=== PATIENT | female | born 1950 | race Caucasian/White ===

== ENCOUNTER 2016-08-12 12:34 | Emergency (ER) | payer MEDICARE, BC ==
[2016-08-12 12:49] VITALS: BP 148/103
[2016-08-12] MEDS ORDERED: Ondansetron 4 MG/2 ML SDV IVPUSH PRN (13:07)
[2016-08-12] MEDS ORDERED: Lactated Ringers 1,000 ML IV SCH (13:15)
[2016-08-12 13:17] LABS: CHLORIDE,CL 100 mEq/L (98-106); SODIUM,NA 134 mEq/L (136-145)
--- NOTE | 2016-08-12 13:17 | EDM.PDOC ---
ED HPI GENERAL MEDICAL PROBLEM - General Chief Complaint: General Stated Complaint: weakness Time Seen by Provider: 08/12/16 12:55 Source of Information: Reports: Patient, Family History Limitations: Reports: No limitations - History of Present Illness INITIAL COMMENTS - FREE TEXT/NARRATIVE: Patient presents to ER with complaints of weakness, nausea and vomiting. She has underwent 5 rounds of chemo for a colon cancer that was found in February. She states this is her second occurrence of colon cancer and has also had labial cancer. With her first bout of cancer, 4 1/2 years ago, she had a large portion of her colon removed. She hasn't underwent any surgery this time as she are doing chemo. She states that in the beginning of May she went through weekly chemo and now it is every other week as she hasn't been tolerating it as well. She used to be able to respond quite quickly with recovery in a day or two but she now feels it is a steady decline. Two days ago , she started having more issues with weakness, nausea and vomiting than prior sessions. She denies fever. She does not have much of an appetite and relates that drinking Boost can only do so much. Has lost 15# since May. She did call her oncologist's office today and was advised she should have labs and possibly fluids as she may be dehydrated. Onset: gradual Duration: Week(s): Location: Reports: generalized Severity: moderate Improves with: Reports: None Worsens with: Reports: Medication (chemo) Associated Symptoms: Reports: loss of appetite, nausea/vomiting, weakness. 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: Other medication(s) (Zofran and phenergan) - Related Data Allergies Allergy/AdvReac Type Severity Reaction Status Date / Time Sulfa (Sulfonamide Allergy Rash Verified 08/12/16 12:55 Antibiotics) Home Meds: Home Meds Sertraline [Zoloft] 50 mg PO DAILY 04/06/15 [History] Amylase/Lipase/Protease [Walt RAYO 24,000 Unit] 1 - 2 cap PO QID 06/13/16 [ History] Calcium Citrate 200 mg PO DAILY 06/13/16 [History] Cholecalciferol (Vitamin D3) [Vitamin D3] 5,000 unit PO DAILY 06/13/16 [History] Cyclobenzaprine [Flexeril] 10 mg PO BEDTIME PRN 06/13/16 [History] Ibuprofen 200 mg PO Q6H PRN 06/13/16 [History] Magnesium 250 mg PO DAILY 06/13/16 [History] oxyCODONE 5 - 10 mg PO Q4H PRN 06/13/16 [History] Megestrol Acetate 2 tsp PO DAILY 08/12/16 [History] Ondansetron HCl [Ondansetron] 8 mg PO Q6H PRN 08/12/16 [History] Promethazine [Phenergan] 0.2 ml TOP ASDIRECTED PRN 08/12/16 [History] Past Medical History HEENT History: Reports: Impaired vision Other HEENT History: wears glasses Gastrointestinal History: Reports: Other (see below) Other Gastrointestinal History: COLON CA. 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) Other OB/BYN History: vulvectomy 11/09/15 Psychiatric History: Reports: Depression Oncologic (Cancer) History: Reports: Colon, Other (see below) Other Oncologic History: CA OF VULVA - Past Surgical History GI Surgical History: Reports: Appendectomy, Colonoscopy Social & Family History - Tobacco Use Smoking Status *Q: Current Every Day Smoker Years of Tobacco use: 40 Packs/Tins Daily: 2 Used Tobacco, but Quit: No - Recreational Drug Use Recreational Drug Use: No ED ROS GENERAL - Review of Systems Review Of Systems: See Below Constitutional: Reports: chills, weakness, fatigue, decreased appetite, weight loss. Denies: fever HEENT: Denies: Ear discharge, Ear pain, Rhinitis, Sinus problem, Throat pain Respiratory: Reports: Cough. Denies: Shortness of Breath, Wheezing Cardiovascular: Denies: Chest pain, Edema, Lightheadedness Endocrine: Reports: fatigue GI/Abdominal: Reports: Diarrhea, Nausea, Vomiting. Denies: Abdominal pain : Reports: no symptoms Musculoskeletal: Reports: no symptoms Skin: Reports: pallor Neurological: Reports: Weakness ED EXAM, GENERAL - Physical Exam Exam: See Below Exam Limited By: No limitations General Appearance: alert, WD/WN, no apparent distress Ears: normal external exam, normal TMs Nose: normal inspection, no blood Throat/Mouth: Normal inspection, Normal oropharynx Head: normocephalic Neck: normal inspection, supple, non-tender Respiratory/Chest: no respiratory distress, rhonchi Cardiovascular: regular rate, rhythm, no edema GI/Abdominal: normal bowel sounds, soft, non tender Neurological: alert, oriented Psychiatric: normal affect, normal mood Skin Exam: Warm, Dry Course - Vital Signs Last Recorded V/S: Last Vital Signs Temp 97.9 F 08/12/16 12:40 Pulse 121 H 08/12/16 12:40 Resp 22 H 08/12/16 12:40 BP 148/103 H 08/12/16 12:40 Pulse Ox 100 08/12/16 12:40 - Orders/Labs/Meds Orders: Active Orders 24 hr Category Date Time Status CULTURE URINE [RM] Stat Lab 08/12/16 14:00 Received Fluconazole [Diflucan] Med 08/12/16 14:15 Active 150 mg PO DAILY Ondansetron [Zofran] Med 08/12/16 13:07 Active 4 mg IVPUSH Q6H PRN Sodium Chloride 0.9% [Normal Saline] 1,000 ml Med 08/12/16 13:30 Active IV ASDIRECTED cefTRIAXone [Rocephin] Med 08/12/16 14:15 Active 1 gm IVPUSH Q24H Medication Orders Ceftriaxone Sodium (Rocephin) 1 gm IVPUSH Q24H [facility] Last Admin: 08/12/16 14:24 Dose: 1 gm Fluconazole (Diflucan) 150 mg PO DAILY [facility] Last Admin: 08/12/16 14:53 Dose: 150 mg Sodium Chloride (Normal Saline) 1,000 mls @ 150 mls/hr IV ASDIRECTED [facility] Last Admin: 08/12/16 13:36 Dose: 150 mls/hr Ondansetron HCl (Zofran) 4 mg IVPUSH Q6H PRN PRN Reason: Nausea Last Admin: 08/12/16 13:36 Dose: 4 mg Labs: Laboratory Tests 08/12/16 08/12/16 08/12/16 Range/Units 13:00 13:00 13:20 WBC 7.1 (5.0-10.0) 10^3/uL RBC 4.07 (4.00-5.50) 10^6/uL Hgb 12.5 (12.0-16.0) g/dL Hct 35.4 L (37.0-47.0) % MCV 87.0 (82.0-94.0) fL MCH 30.7 (27.0-32.0) pg MCHC 35.3 (33.0-38.0) g/dL RDW Coeff of Kortney 16.3 H (11.0-15.0) % Plt Count 325 (150-400) 10^3/uL Neut % (Auto) 61.6 (35-85) % Lymph % (Auto) 33.6 (10-55) % Irwin % (Auto) 4.4 (0-16) % Eos % (Auto) 0.1 (0-5) % Baso % (Auto) 0.3 (0-3) % Neut # 4.39 (1.80-7.00) 10^3/uL Lymph # 2.39 (1.00-4.80) 10^3/uL Irwin # 0.31 (0.00-0.80) 10^3/uL Eos # 0.01 (0.00-0.45) 10^3/uL Baso # 0.02 10^3/uL Sodium 134 L (136-145) mEq/L Potassium 4.3 (3.5-5.0) mEq/L Chloride 100 (98-106) mEq/L Carbon Dioxide 20 L (21-32) mmol/L BUN 14 (7-18) mg/dL Creatinine 0.8 (0.6-1.0) mg/dL Est Cr Clr Drug Dosing 58.93 mL/min Estimated GFR (MDRD) > 60 (>=60) mL/min Glucose 130 H D (75-99) mg/dL Calcium 9.2 (8.4-10.1) mg/dL Total Bilirubin 0.3 (0.0-1.0) mg/dL AST 12 L (15-37) U/L ALT 19 (12-78) U/L Alkaline Phosphatase 108 (46-116) U/L C-Reactive Protein 1.0 H (0.2-0.8) mg/dL Total Protein 6.9 (6.4-8.2) g/dL Albumin 2.6 L (3.4-5.0) g/dL Urine Color Yellow (YELLOW) Urine Appearance Clear (CLEAR) Urine pH 5.5 (4.5-8.0) Ur Specific [place] 1.022 H (1.003-1.020) Urine Protein 30 H (NEGATIVE) mg/dL Urine Glucose (UA) Negative (NEGATIVE) mg/dL Urine Ketones Negative (NEGATIVE) mg/dL Urine Occult Blood Moderate H (NEGATIVE) Urine Nitrite Negative (NEGATIVE) Urine Bilirubin Negative (NEGATIVE) Urine Urobilinogen 0.2 (0.2-1.0) EU/dL Ur Leukocyte Esterase Negative (NEGATIVE) Urine RBC 5-10 H (0-5) /HPF Urine WBC Not seen (0-5) /HPF Ur Epithelial Cells Many H (NOT SEEN) /HPF Urine Bacteria Few H (NOT SEEN) /HPF Urine Yeast Few H (NOT SEEN) /HPF Meds: Medications Generic Name Dose Route Start Last Admin Trade Name Freq PRN Reason Stop Dose Admin Ceftriaxone Sodium 1 gm 08/12/16 14:15 08/12/16 14:24 Rocephin IVPUSH 1 gm Q24H MARIBEL Administration Fluconazole 150 mg 08/12/16 14:15 08/12/16 14:53 Diflucan PO 150 mg DAILY MARIBEL Administration Sodium Chloride 1,000 mls @ 150 mls/hr 08/12/16 13:30 08/12/16 13:36 Normal Saline IV 150 mls/hr ASDIRECTED MARIBEL Administration Ondansetron HCl 4 mg 08/12/16 13:07 08/12/16 13:36 Zofran IVPUSH 4 mg Q6H PRN Administration Nausea Discontinued Medications Generic Name Dose Route Start Last Admin Trade Name Freq PRN Reason Stop Dose Admin Lactated Ringer's 1,000 mls @ 150 mls/hr 08/12/16 13:15 Ringers, Lactated IV ASDIRECTED MARIBEL - Re-Assessments/Exams Free Text/Narrative Re-Assessment/Exam: 08/12/16 16:16 Reviewed lab results. Does have evidence of bacteria in her urine and yeast as well so will treat accordingly. Given Rocephin and Diflucan here. Will continue Ceftin and Diflucan on discharge. Patient informed and verbalizes understanding. Did advise her to notify Dr. Pritchard's office of todays visit and results. Departure - Departure Time of Disposition: 16:19 Disposition: Home, Self-Care 01 Condition: fair Clinical Impression: Dehydration, UTI, Urinary tract infectious disease Forms: ED Department Discharge Additional Instructions: 1. Push fluids 2. Ceftin 250 mg twice a day for 10 days 3. Repeat Diflucan on 08-15-2016 4. Rest 5. Follow up with oncologist as scheduled. Notify his office of visit today - My Orders Last 24 Hours: My Active Orders 08/12/16 13:07 Ondansetron [Zofran] 4 mg IVPUSH Q6H PRN 08/12/16 13:30 Sodium Chloride 0.9% [Normal Saline] 1,000 ml IV ASDIRECTED 08/12/16 14:00 CULTURE URINE [RM] Stat 08/12/16 14:15 Fluconazole [Diflucan] 150 mg PO DAILY cefTRIAXone [Rocephin] 1 gm IVPUSH Q24H - Assessment/Plan Last 24 Hours: My Active Orders 08/12/16 13:07 Ondansetron [Zofran] 4 mg IVPUSH Q6H PRN 08/12/16 13:30 Sodium Chloride 0.9% [Normal Saline] 1,000 ml IV ASDIRECTED 08/12/16 14:00 CULTURE URINE [RM] Stat 08/12/16 14:15 Fluconazole [Diflucan] 150 mg PO DAILY cefTRIAXone [Rocephin] 1 gm IVPUSH Q24H
[2016-08-12] MEDS ORDERED: Sodium Chloride 0.9% 1,000 ML IV SCH (13:30)
[2016-08-12] MEDS ORDERED: Fluconazole 100 MG Tab PO SCH (14:15)
[2016-08-12] MEDS ORDERED: cefTRIAXone 1 GM Vial IVPUSH SCH (14:15)
== END 2016-08-12 17:50 | disposition home or self-care (01) ==
LOC: CC.ED 12:34
DX: E86.0 Dehydration (principal); N39.0 Urinary tract infection, site not specified; F32.9 Major depressive disorder, single episode, unspecified; F17.210 Nicotine dependence, cigarettes, uncomplicated; Z90.49 Acquired absence of other specified parts of digestive tract; Z88.2 Allergy status to sulfonamides; Z79.899 Other long term (current) drug therapy
CPT/HCPCS: 36415; 80053; 81001; 85025; 86140; 87086; 96361; 96374; 96375; 99283; A9270; J0696; J1642; J2405; J7030

== ENCOUNTER 2019-03-16 06:38 | Emergency (ER) | payer MEDICARE, BC ==
[2019-03-16] MEDS: fentaNYL 100 MCG/2 ML SDV ONE (06:54)
[2019-03-16] MEDS: fentaNYL 100 MCG/2 ML SDV IM ONE (06:54)
[2019-03-16 07:24] VITALS: BP 177/92; PULSE 95
[2019-03-16] MEDS: Acetaminophen/oxyCODONE 325-5 MG Tab PO ONE (07:33)
--- NOTE | 2019-03-16 07:52 | EDM.PDOC ---
ED HPI GENERAL MEDICAL PROBLEM - General Chief Complaint: General Stated Complaint: BACK PAIN Time Seen by Provider: 03/16/19 07:10 Source of Information: Reports: Patient History Limitations: Reports: No Limitations - History of Present Illness INITIAL COMMENTS - FREE TEXT/NARRATIVE: Patient presents with complaints of severe low back pain. States became more severe last night. Denies any injury or straining. Has had intermittent back pain over the years, often is treated by the chiropractor. Has not had issues now for many months. 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 Has palliative chemo every 3 months. Due again at the end of February. Denies having any bone pain in the past from this. She typically has not had any pain, only takes tylenol at times. Does feel nauseated. No vomiting. Denies any abdominal pain. Does admit that she may be somewhat constipated but has been before and never had pain like this. 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: Acetaminophen Lower Back Pain Score (Numeric/FACES): 9 - Related Data Allergies Allergy/AdvReac Type Severity Reaction Status Date / Time Sulfa (Sulfonamide Allergy Rash Verified 03/16/19 06:40 Antibiotics) Home Meds: Home Meds Calcium Citrate 600 mg PO DAILY 06/13/16 [History] Cholecalciferol (Vitamin D3) [Vitamin D3] 5,000 unit PO DAILY 06/13/16 [History] Magnesium 500 mg PO DAILY 06/13/16 [History] Aspirin [Children's Aspirin] 81 mg PO DAILY 11/28/17 [History] Omeprazole Magnesium [Prilosec Otc] 20 mg PO DAILY 11/28/17 [History] Venlafaxine HCl [Venlafaxine ER] 150 mg PO BEDTIME 12/26/17 [History] Amylase/Lipase/Protease [Walt DR 24,000 Unit] 2 cap PO QID 09/10/18 [History] Loperamide [Imodium] 2 mg PO DAILY PRN 02/05/19 [History] Past Medical History HEENT History: Reports: Impaired Vision Other HEENT History: wears glasses Gastrointestinal History: Reports: Other (See Below) Other Gastrointestinal History: COLON CA. 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) Other SOLUTION DIRECTOR History: vulvectomy 11/09/15 Psychiatric History: Reports: Depression Oncologic (Cancer) History: Reports: Colon, Other (See Below) Other Oncologic History: CA OF VULVA - Past Surgical History GI Surgical History: Reports: Appendectomy, Colonoscopy Social & Family History - Family History Family Medical History: Noncontributory - Tobacco Use Smoking Status *Q: Current Every Day Smoker Years of Tobacco use: 50 Packs/Tins Daily: 1 Used Tobacco, but Quit: No - Caffeine Use Caffeine Use: Reports: Coffee - Recreational Drug Use Recreational Drug Type: Reports: Marijuana/Hashish ED ROS GENERAL - Review of Systems Review Of Systems: See Below Constitutional: Reports: Malaise, Weakness. Denies: Fever, Chills HEENT: Denies: Ear Pain, Sinus Problem, Throat Pain, Vertigo Respiratory: Reports: Shortness of Breath. Denies: Cough Cardiovascular: Denies: Chest Pain, Edema, Lightheadedness Endocrine: Reports: Fatigue GI/Abdominal: Reports: Abdominal Pain, Constipation, Nausea. Denies: Vomiting : Reports: No Symptoms Musculoskeletal: Reports: Back Pain ED EXAM, GENERAL - Physical Exam Exam: See Below Exam Limited By: No Limitations General Appearance: Alert, WD/WN, Moderate Distress Ears: Normal External Exam, Normal TMs Nose: Normal Inspection, Normal Mucosa, No Blood Throat/Mouth: Normal Inspection, Normal Oropharynx Head: Normocephalic Neck: Normal Inspection, Supple, Non-Tender Respiratory/Chest: No Respiratory Distress, Lungs Clear, Normal Breath Sounds Cardiovascular: Regular Rate, Rhythm GI/Abdominal: Normal Bowel Sounds, Soft, Non-Tender Back Exam: Decreased Range of Motion, Paraspinal Tenderness, Vertebral Tenderness Extremities: Normal Inspection, No Pedal Edema Neurological: Alert, Oriented Skin Exam: Warm, Dry Course - Vital Signs Last Recorded V/S: Last Vital Signs Temp 98.3 F 03/16/19 07:23 Pulse 95 03/16/19 07:23 Resp 18 03/16/19 07:23 BP 177/92 H 03/16/19 07:23 Pulse Ox 100 03/16/19 07:23 - Orders/Labs/Meds Orders: Active Orders 24 hr Category Date Time Status Consult to Physical Therapy [PT Evaluation and Cons 03/16/19 07:57 Active Treatment] [CONS] Routine Lumbar Spine 2 or 3V [CR] Stat Exams 03/16/19 06:50 Taken Meds: Medications Discontinued Medications Generic Name Dose Route Start Last Admin Trade Name Gordo PRN Reason Stop Dose Admin Fentanyl Confirm 03/16/19 06:32 03/16/19 06:54 Sublimaze Administered 03/16/19 06:33 Not Given Dose 100 mcg .ROUTE .STK-MED ONE Fentanyl 50 mcg 03/16/19 06:49 03/16/19 06:54 Sublimaze IM 03/16/19 06:50 50 mcg ONETIME ONE Administration Oxycodone/Acetaminophen 1 tab 03/16/19 07:26 03/16/19 07:33 Percocet 325-5 Mg PO 03/16/19 07:27 1 tab ONETIME ONE Administration - Re-Assessments/Exams Free Text/Narrative Re-Assessment/Exam: 03/16/19 08:00 Patient did get relief from Fentanyl that allowed her to be more mobile but did not "last very long". Given percocet now, will have PT see patient this am. Xrays stable, no obvious abnormality. Patient admits to relief with the Percocet. Unable to get patient in to physical therapy this am and she would like to go home at this time. Will see PT tomorrow. Departure - Departure Time of Disposition: 09:17 Disposition: Home, Self-Care 01 Condition: Fair Clinical Impression: Back pain - Discharge Information *PRESCRIPTION DRUG MONITORING PROGRAM REVIEWED*: No *COPY OF PRESCRIPTION DRUG MONITORING REPORT IN PATIENT JOSE: No Referrals: Jose Ramirez MD [Primary Care Provider] - Forms: ED Department Discharge Additional Instructions: 1. Rest 2. Percocet 5/325 1-2 tabs every 6 hours as needed for pain 3. Heat to low back for comfort 4. See physical therapy as able 5. Follow up with primary care provider if needed - My Orders Last 24 Hours: My Active Orders 03/16/19 06:50 Lumbar Spine 2 or 3V [CR] Stat 03/16/19 07:57 Consult to Physical Therapy [PT Evaluation and Treatment] [CONS] Routine - Assessment/Plan Last 24 Hours: My Active Orders 03/16/19 06:50 Lumbar Spine 2 or 3V [CR] Stat 03/16/19 07:57 Consult to Physical Therapy [PT Evaluation and Treatment] [CONS] Routine
== END 2019-03-16 09:39 | disposition home or self-care (01) ==
LOC: CC.ED 06:38
DX: M54.5 Low back pain (principal); F17.210 Nicotine dependence, cigarettes, uncomplicated; F32.9 Major depressive disorder, single episode, unspecified; Z79.82 Long term (current) use of aspirin; Z79.899 Other long term (current) drug therapy; Z88.2 Allergy status to sulfonamides
CPT/HCPCS: 72100; 96372; 99283-25; A9270-GY; J3010

== ENCOUNTER 2020-08-08 09:22 | Observation (INO) | payer MEDICARE, BC ==
[2020-08-08] MEDS ORDERED: Acetaminophen 325 MG Tab PO PRN (09:26)
[2020-08-08] MEDS ORDERED: Temazepam 15 MG Cap PO PRN (09:26)
[2020-08-08] MEDS ORDERED: Ondansetron 4 MG Tab.DIS PO PRN (09:26)
[2020-08-08] MEDS ORDERED: fentaNYL 50 MCG/ML SDV IVPUSH PRN (09:26)
[2020-08-08] MEDS ORDERED: Lactated Ringers 1,000 ML IV SCH (09:30)
[2020-08-08 10:07] LABS: CHLORIDE,CL 103 mEq/L (98-106); SODIUM,NA 141 mEq/L (136-145)
[2020-08-08] MEDS: Ondansetron 4 MG/2 ML SDV IV PRN ×2 (10:13→20:04)
[2020-08-08] MEDS ORDERED: MEGESTROL PO PRN (11:12)
[2020-08-08] MEDS ORDERED: Acetaminophen 500 MG Tab PO PRN (11:12)
[2020-08-08] MEDS: Pantoprazole 40 MG Vial IVPUSH SCH (12:00)
[2020-08-08] MEDS ORDERED: Polyethylene Glycol 3350 Powder 17 GM Packet PO PRN (13:17)
[2020-08-08] MEDS: PROTEASE PO SCH ×2 (13:20→17:32)
[2020-08-08] MEDS: AMYLASE PO SCH ×2 (13:20→17:32)
[2020-08-08] MEDS: LIPASE PO SCH ×2 (13:20→17:32)
[2020-08-08] MEDS: Gabapentin 100 MG Cap **PTOM PO SCH ×2 (13:26→21:28)
[2020-08-08] MEDS: MINOCYCLINE 100 MG PO SCH (17:31)
[2020-08-08] MEDS: NS + KCl 20mEq/L 1,000 ML IV SCH (17:33)
[2020-08-08] MEDS ORDERED: VENLAFAXINE 75 MG PO SCH (20:00)
[2020-08-08] MEDS ORDERED: VENLAFAXINE HCL 150 MG PO SCH (20:00)
[2020-08-09] MEDS: NS + KCl 20mEq/L 1,000 ML IV SCH ×2 (01:06→10:01)
[2020-08-09] MEDS: MINOCYCLINE 100 MG PO SCH (07:54)
[2020-08-09] MEDS: PROTEASE PO SCH ×2 (07:55→11:50)
[2020-08-09] MEDS: LIPASE PO SCH ×2 (07:55→11:50)
[2020-08-09] MEDS: AMYLASE PO SCH ×2 (07:55→11:50)
[2020-08-09] MEDS: Gabapentin 100 MG Cap **PTOM PO SCH (07:56)
[2020-08-09] MEDS: Ondansetron 4 MG/2 ML SDV IV PRN (07:59)
[2020-08-09] MEDS ORDERED: Aspirin 81 MG Tab.Chew PO SCH (08:00)
[2020-08-09] MEDS ORDERED: Dexamethasone 4 MG Tab PO SCH (08:00)
[2020-08-09] MEDS ORDERED: Cholecalciferol (Vitamin D3) 25 MCG Tab PO SCH (08:00)
[2020-08-09] MEDS: Pantoprazole 40 MG Vial IVPUSH SCH (11:43)
[2020-08-09 11:51] VITALS: BP 167/85
[2020-08-09] MEDS ORDERED: Lisinopril 10 MG Tab PO SCH (12:00)
[2020-08-09 12:10] VITALS: PULSE 78
--- NOTE | 2020-08-09 13:20 | PCM.DCSUM1 ---
Discharge Summary - Hospital Course HPI Initial Comments: Ping is a 69 year old female who was admitted observation status to the hospital yesterday for dehydration, N/V and hypokalemia. She has stage IV colon cancer. Was scheduled to do round of chemotherapy yesterday but was feeling very poorly. Lab work stable except potassium down to 3.2. She was admitted, started on IVF with KCL and IV zofran. She reports strength has improved since yesterday. She does report improvement in her nausea. Has not had emesis. She was able to eat breakfast this morning. BP elevated throughout stay. Patient was started on lisinopril. She is advised to follow up with PCP or oncologist in 1 week and recheck potassium. She is advised to use her previously prescribed Zofran and promethazine as needed for nausea/vomiting. Did place outpatient order for IVF and Zofran should the patient need over the weekend. She is discharged home in satisfactory condition. - Discharge Data Discharge Date: 08/09/20 Discharge Disposition: Home, Self-Care 01 Condition: Good - Referral to Home Health Primary Care Physician: GEORGIE Delacruz - Discharge Diagnosis/Problem(s) (1) Dehydration SNOMED Code(s): 65131711 ICD Code: E86.0 - DEHYDRATION Status: Acute Current Visit: No (2) Nausea & vomiting SNOMED Code(s): 84169987 ICD Code: R11.2 - NAUSEA WITH VOMITING, UNSPECIFIED Status: Acute Current Visit: Yes Qualifiers: Vomiting type: unspecified Vomiting Intractability: non-intractable Qualified Code(s): R11.2 - Nausea with vomiting, unspecified (3) Hypokalemia SNOMED Code(s): 70350317 ICD Code: E87.6 - HYPOKALEMIA Status: Acute Current Visit: Yes - Patient Instructions Diet: Usual Diet as Tolerated Activity: As Tolerated Notify Provider of: Fever, Increased Pain, Nausea and/or Vomiting - Discharge Plan *PRESCRIPTION DRUG MONITORING PROGRAM REVIEWED*: Not Applicable *COPY OF PRESCRIPTION DRUG MONITORING REPORT IN PATIENT JOSE: Not Applicable Prescriptions/Med Rec: lisinopriL [Prinivil] 10 mg PO DAILY #30 tablet Home Medications: Home Meds Cholecalciferol (Vitamin D3) [Vitamin D3] 5,000 unit PO DAILY 06/13/16 [History] Aspirin [Children's Aspirin] 81 mg PO DAILY 11/28/17 [History] Omeprazole Magnesium [Prilosec Otc] 20 mg PO DAILY PRN 11/28/17 [History] Oxybutynin Chloride [Oxybutynin Chloride ER] 10 mg PO DAILY 02/25/20 [History] Acetaminophen [Tylenol Extra Strength] 1,000 mg PO QID PRN 08/08/20 [History] Amylase/Lipase/Protease [Walt RAYO 24,000 Unit] 1 - 2 cap PO TID 08/08/20 [History] Calcium Carbonate/Vitamin D3 [Calcium 500-Vit D3 600 Caplet] 1 tab PO DAILY 08/08/20 [History] Cannabidiol (Cbd) Extract [CBD Oil] 8 drop SL DAILY 08/08/20 [History] Gabapentin [Neurontin] 100 mg PO TID 08/08/20 [History] Magnesium Oxide [Mag-Oxide] 800 mg PO DAILY 08/08/20 [History] Megestrol [Megace 40 MG/ML Susp] 10 ml PO DAILY PRN 08/08/20 [History] Melatonin 3 mg PO BEDTIME 08/08/20 [History] Minocycline [Minocin] 100 mg PO BIDAC 08/08/20 [History] Multivitamin/Iron/Folic Acid [Centrum Adults Tablet] 1 tab PO DAILY 08/08/20 [History] Ondansetron [Zofran Odt] 8 mg PO Q6H PRN 08/08/20 [History] Policos/Inositol Niac/Garlic [Msmowhqyuqg-Ebelvt-Xbpbtr] 1 tab PO DAILY 08/08/20 [History] Promethazine [Phenergan] 25 mg TOP ASDIRECTED 08/08/20 [History] Venlafaxine HCl [Venlafaxine ER] 150 mg PO DAILY 08/08/20 [History] Venlafaxine [Effexor XR] 75 mg PO DAILY 08/08/20 [History] dexAMETHasone [Dexamethasone] 2 tab PO DAILY 08/08/20 [History] polyethylene glycoL 3350 [MiraLAX] 17 gm PO DAILY 08/08/20 [History] lisinopriL [Prinivil] 10 mg PO DAILY #30 tablet 08/09/20 [Rx] Patient Handouts: Nausea and Vomiting, Adult, [id number], Dehydration, Adult, [id number] - Discharge Summary/Plan Comment DC Time >30 min.: No - General Info Date of Service: 08/09/20 Admission Dx/Problem (Free Text: Dehydration Nausea and vomiting Hypokalemia Subjective Update: Patient reports strength has improved. She is less sleeping and has been up ambulating. She did tolerate small amount of breakfast. She denies any vomiting or diarrhea. No other complaints. Functional Status: Reports: Pain Controlled, Tolerating Diet, Ambulating, Urinating. Denies: New Symptoms - Review of Systems General: Reports: No Symptoms. Denies: Fever, Weakness, Malaise, Chills HEENT: Reports: No Symptoms Pulmonary: Reports: No Symptoms Cardiovascular: Reports: No Symptoms Gastrointestinal: Reports: Abdominal Pain (mild abdominal tenderness), Decreased Appetite, Nausea. Denies: Diarrhea, Vomiting Genitourinary: Reports: No Symptoms Musculoskeletal: Reports: No Symptoms Skin: Reports: No Symptoms Neurological: Reports: No Symptoms Psychiatric: Reports: No Symptoms - Patient Data Vitals - Most Recent: Last Vital Signs Temp 97.2 F 08/09/20 12:00 Pulse 78 08/09/20 12:00 Resp 18 08/09/20 12:00 BP 167/85 H 08/09/20 12:00 Pulse Ox 96 08/09/20 12:00 Weight - Most Recent: 116 lb 3.2 oz I&O - Last 24 hours: Intake & Output 08/08/20 08/09/20 08/09/20 22:59 06:59 14:59 Intake Total 944 1000 Balance 944 1000 Lab Results - Last 24 hrs: Laboratory Results - last 24 hr 08/09/20 Range/Units 09:15 Potassium 3.8 (3.5-5.0) mEq/L Med Orders - Current: Current Medications Acetaminophen (Acetaminophen 325 Mg Tab) 650 mg PO Q4H PRN PRN Reason: Pain (Mild 1-3)/fever Last Admin: 08/09/20 03:36 Dose: 650 mg Documented by: Aspirin (Aspirin 81 Mg Tab.Chew) 81 mg PO DAILY [facility] Last Admin: 08/09/20 07:56 Dose: Not Given Documented by: Cholecalciferol (Cholecalciferol (Vitamin D3) 25 Mcg Tab) 125 mcg PO DAILY [facility] Last Admin: 08/09/20 07:56 Dose: Not Given Documented by: Fentanyl (Fentanyl 50 Mcg/Ml Sdv) 25 mcg IVPUSH Q2H PRN PRN Reason: Pain (moderate 4-6) Last Admin: 08/08/20 10:12 Dose: 25 mcg Documented by: Gabapentin (Gabapentin 100 Mg Cap Ptom) 100 mg PO TID [facility] Last Admin: 08/09/20 07:56 Dose: Not Given Documented by: Potassium Chloride/Sodium Chloride (Normal Saline With 20 Meq Kcl) 1,000 mls @ 125 mls/hr IV ASDIRECTED [facility] Last Admin: 08/09/20 10:01 Dose: 125 mls/hr Documented by: Lisinopril (Lisinopril 10 Mg Tab) 10 mg PO DAILY [facility] Last Admin: 08/09/20 11:44 Dose: 10 mg Documented by: Non-Formulary Medication (Megestrol [Megace 40 Mg/Ml Susp]) 10 ml PO DAILY PRN PRN Reason: Other Minocycline [Minocin ] 100 Mg Cap Ptom* * 0 mg PO BIDAC [facility] Last Admin: 08/09/20 07:54 Dose: 1 mg Documented by: Venlafaxine Hcl 150 (Mg Cap.Er. Ptom) 0 mg PO BEDTIME [facility] Last Admin: 08/08/20 20:09 Dose: 150 mg Documented by: Amylase/Lipase/Protease 1 Cap ( Creon) Ptom 1 - 2 cap PO TIDMEALS [facility] Last Admin: 08/09/20 11:50 Dose: 2 cap Documented by: Ondansetron HCl (Ondansetron 4 Mg Tab.Dis) 4 mg PO Q4H PRN PRN Reason: nausea, able to take PO Ondansetron HCl (Ondansetron 4 Mg/2 Ml Sdv) 4 mg IV Q4H PRN PRN Reason: Nausea/Vomiting Last Admin: 08/09/20 07:59 Dose: 4 mg Documented by: Pantoprazole Sodium (Pantoprazole 40 Mg Vial) 40 mg IVPUSH Q24H [facility] Last Admin: 08/09/20 11:43 Dose: 40 mg Documented by: Polyethylene Glycol (Polyethylene Glycol 3350 Powder 17 Gm Packet) 17 gm PO DAILY PRN PRN Reason: Constipation Last Admin: 08/09/20 08:03 Dose: 17 gm Documented by: Temazepam (Temazepam 15 Mg Cap) 15 mg PO BEDTIME PRN PRN Reason: Sleep Venlafaxine HCl (Venlafaxine 75 Mg Cap.Er Ptom) 75 mg PO BEDTIME [facility] Last Admin: 08/08/20 19:52 Dose: 75 mg Documented by: Discontinued Medications Acetaminophen (Acetaminophen 500 Mg Tab) 1,000 mg PO QID PRN PRN Reason: Pain Dexamethasone (Dexamethasone 4 Mg Tab) 8 mg PO DAILY [facility] Lactated Ringer's (Ringers, Lactated) 1,000 mls @ 125 mls/hr IV ASDIRECTED [facility] Last Admin: 08/08/20 10:12 Dose: 125 mls/hr Documented by: Amylase/Lipase/Protease 1 Cap ( Creon) Ptom 1 - 2 cap PO TID [facility] Last Admin: 08/08/20 17:32 Dose: 2 cap Documented by: - Exam General: Reports: Alert, Oriented, No Acute Distress Neck: Reports: Supple Lungs: Reports: Clear to Auscultation, Normal Respiratory Effort Cardiovascular: Reports: Regular Rate, Regular Rhythm GI/Abdominal Exam: Normal Bowel Sounds, Soft, No Distention, Tender (mild tenderness to BLQ) Back Exam: Reports: Normal Inspection, Full Range of Motion. Denies: CVA Tenderness (L), CVA Tenderness (R) Extremities: Normal Inspection, Normal Range of Motion, Non-Tender, No Pedal Edema, Normal Capillary Refill Skin: Reports: Warm, Dry, Intact Neurological: Reports: No New Focal Deficit Psy/Mental Status: Reports: Alert, Normal Affect, Normal Mood
== END 2020-08-09 14:02 | disposition home or self-care (01) ==
LOC: CC.MS 09:22 → UNDOADMOB 09:22 → CC.MS 09:26
PROVIDERS: ADMIT Physician Assistant Medical; ATTEND Family Medicine
DX: E86.0 Dehydration (principal); R53.1 Weakness; E87.6 Hypokalemia; C18.9 Malignant neoplasm of colon, unspecified; Z88.2 Allergy status to sulfonamides; Z79.82 Long term (current) use of aspirin; Z79.899 Other long term (current) drug therapy
CPT/HCPCS: 36415; 80053; 84132; 85025; 86140; 96365; 96366; 96375; 96376; 99217; 99220; A9270-GY; C9113; G0378; J2405; J3010; J3480; J7120

== ENCOUNTER 2020-08-12 08:20 | Observation (INO) | payer MEDICARE, BC ==
[2020-08-12] MEDS ORDERED: Ondansetron 4 MG/2 ML SDV IVPUSH STA (08:37)
[2020-08-12] MEDS ORDERED: Morphine 4 MG/ML VIAL IVPUSH ONE (08:38)
[2020-08-12] MEDS ORDERED: Sodium Chloride 0.9% 500 ML IV SCH (08:45)
--- NOTE | 2020-08-12 09:18 | EDM.PDOC ---
ED HPI GENERAL MEDICAL PROBLEM - General Chief Complaint: General Stated Complaint: weakness Time Seen by Provider: 08/12/20 08:53 Source of Information: Reports: Patient History Limitations: Reports: No Limitations - History of Present Illness INITIAL COMMENTS - FREE TEXT/NARRATIVE: This patient is a 69 year old female that presents to the ER. 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 Patient reports her last chemo treatment was about 4-5 weeks ago. She reports that on Thursday she was seen for abd pain, general weakness, and diarrhea. She reports she was admitted for low potassium, treated. She reports on she was fee ling better. She reports that during her stay she was treated for HTN with Lisinopril. She reports when she left hospital, she went to the pharmacy and picked up her Lisinopril, but there was no potassium prescription ready, so she did not get it. Patient reports that starting Thursday night she began to feel weak again. She reports feeling generally weak, nauseated, and having some mild shortness of breath. She reports that she fell once on Thursday night due to being generally weak and feeling off balance. Patient reports that she had fallen again 3 more times on Thursday due to generally feeling weak and off balance due to the weakness. She reports she has fallen a total of 4 times. She reports that 3 times, she fell down to her knees without injury. She reports Thursday night she hit the left front of her face that caused bruising under her left eye. Patient denies headache, loc, v, d, f, chest pain, abd pain, urinary/bowel changes, rashes, edema, neck pain, pelvis/hip pain, any extremity pain. Onset Date: 08/10/20 Duration: Day(s): (2) Front/Back Body Image: 1 - pain. Quality: Reports: Ache Severity: Mild Worsens with: Reports: Movement Associated Symptoms: Reports: Loss of Appetite, Nausea/Vomiting, Shortness of B reath, Weakness. Denies: Confusion, Chest Pain, Cough, cough w sputum, Diaphoresis, Fever/Chills, Headaches, Malaise, Rash, Seizure, Syncope Right Flank Pain Score (Numeric/FACES): 3 - Related Data Allergies Allergy/AdvReac Type Severity Reaction Status Date / Time Sulfa (Sulfonamide Allergy Rash Verified 08/12/20 08:30 Antibiotics) Home Meds: Home Meds Cholecalciferol (Vitamin D3) [Vitamin D3] 5,000 unit PO DAILY 06/13/16 [History] Aspirin [Children's Aspirin] 81 mg PO DAILY 11/28/17 [History] Omeprazole Magnesium [Prilosec Otc] 20 mg PO DAILY PRN 11/28/17 [History] Oxybutynin Chloride [Oxybutynin Chloride ER] 10 mg PO DAILY 02/25/20 [History] Acetaminophen [Tylenol Extra Strength] 1,000 mg PO QID PRN 08/08/20 [History] Amylase/Lipase/Protease [Creon DR 24,000 Unit] 1 - 2 cap PO TID 08/08/20 [History] Calcium Carbonate/Vitamin D3 [Calcium 500-Vit D3 600 Caplet] 1 tab PO DAILY 08/08/20 [History] Cannabidiol (Cbd) Extract [CBD Oil] 8 drop SL DAILY 08/08/20 [History] Gabapentin [Neurontin] 100 mg PO TID 08/08/20 [History] Magnesium Oxide [Mag-Oxide] 800 mg PO DAILY 08/08/20 [History] Megestrol [Megace 40 MG/ML Susp] 10 ml PO DAILY PRN 08/08/20 [History] Melatonin 3 mg PO BEDTIME 08/08/20 [History] Multivitamin/Iron/Folic Acid [Centrum Adults Tablet] 1 tab PO DAILY 08/08/20 [History] Ondansetron [Zofran Odt] 8 mg PO Q6H PRN 08/08/20 [History] Policos/Inositol Niac/Garlic [Xaoprrgwtwc-Bpbyav-Nkxidk] 1 tab PO DAILY 08/08/20 [History] Promethazine [Phenergan] 25 mg TOP ASDIRECTED 08/08/20 [History] Venlafaxine HCl [Venlafaxine ER] 150 mg PO DAILY 08/08/20 [History] Venlafaxine [Effexor XR] 75 mg PO DAILY 08/08/20 [History] dexAMETHasone [Dexamethasone] 2 tab PO DAILY 08/08/20 [History] polyethylene glycoL 3350 [MiraLAX] 17 gm PO DAILY 08/08/20 [History] lisinopriL [Prinivil] 10 mg PO DAILY #30 tablet 08/09/20 [Rx] oxyCODONE 5 mg PO Q6H PRN 08/12/20 [History] Past Medical History HEENT History: Reports: Impaired Vision Other HEENT History: wears glasses Respiratory History: Reports: Other (See Below) Other Respiratory History: colon CA mets Gastrointestinal History: Reports: Other (See Below) Other Gastrointestinal History: COLON CA. COLECTOMY PROJECT ENG History: Reports: Other (See Below) Other PROJECT ENG History: vulvectomy 11/09/15 Psychiatric History: Reports: Depression Oncologic (Cancer) History: Reports: Colon, Other (See Below) Other Oncologic History: CA OF VULVA - Past Surgical History GI Surgical History: Reports: Appendectomy, Colonoscopy Social & Family History - Family History Family Medical History: No Pertinent Family History - Tobacco Use Tobacco Use Status *Q: Current Every Day Tobacco User Years of Tobacco use: 50 Packs/Tins Daily: 1.5 - Caffeine Use Caffeine Use: Reports: Coffee - Recreational Drug Use Recreational Drug Use: No ED ROS GENERAL - Review of Systems Review Of Systems: See Below Constitutional: Reports: Weakness (generally), Decreased Appetite HEENT: Reports: No Symptoms Respiratory: Reports: Shortness of Breath. Denies: Wheezing, Pleuritic Chest Pain, Cough, Sputum, Hemoptysis Cardiovascular: Reports: No Symptoms Endocrine: Reports: No Symptoms GI/Abdominal: Reports: Nausea. Denies: Abdominal Pain, Diarrhea, Vomiting : Reports: No Symptoms Musculoskeletal: Reports: Back Pain (right lower) Skin: Reports: No Symptoms Neurological: Reports: No Symptoms Psychiatric: Reports: No Symptoms Hematologic/Lymphatic: Reports: No Symptoms Immunologic: Reports: No Symptoms ED EXAM, GENERAL - Physical Exam Exam: See Below Exam Limited By: No Limitations General Appearance: Alert, WD/WN, No Apparent Distress Eye Exam: Bilateral Eye: Normal Inspection, PERRL Ears: Normal External Exam, Normal Canal, Hearing Grossly Normal, Normal TMs Ear Exam: Bilateral Ear: Auricle Normal, Canal Normal, TM normal Nose: Normal Inspection, Normal Mucosa, No Blood Throat/Mouth: Normal Teeth (upper dentures removed during exam), Normal Voice, No Airway Compromise, Other (dry oral mucosa. postorpharynx dry, white mucous. Will culture for yeast. ) Head: Atraumatic, Normocephalic, Facial Tenderness (mild left infraorbital ecchymosis, mild tendereness, no crepitus, no evidence of fracture. ) Neck: Normal Inspection, Supple, Non-Tender, Full Range of Motion Respiratory/Chest: No Respiratory Distress, Lungs Clear, Normal Breath Sounds (decreased but clear), No Accessory Muscle Use, Chest Non-Tender, Decreased Breath Sounds Cardiovascular: Normal Peripheral Pulses, Regular Rate, Rhythm, No Edema, No Gallop, No JVD, No Murmur, No Rub Peripheral Pulses: 2+: Radial (L), Radial (R), Posterior Tibial (L), Posterior Tibial (R) GI/Abdominal: Normal Bowel Sounds, Soft, Non-Tender, No Distention, Pelvis Stable (Female) Exam: Deferred Rectal (Female) Exam: Deferred Back Exam: Normal Inspection, Full Range of Motion, Paraspinal Tenderness (right lower mild, made worse with bending or twisting of the trunk. ). No: CVA Tenderness (L), CVA Tenderness (R), Decreased Range of Motion, Muscle Spasm, Vertebral Tenderness Extremities: Normal Inspection, Normal Range of Motion, Non-Tender, No Pedal Edema, Normal Capillary Refill Neurological: Alert, Oriented, CN II-XII Intact, Normal Cognition, No Motor/Sensory Deficits, Other (Stroke Score 0. GCS 15. ) Psychiatric: Normal Affect, Normal Mood Skin Exam: Warm, Dry, Intact, No Rash, Ecchymosis (Left infraorbital mild. ), Other (general ashy appearance her baseline. ) Lymphatic: No Adenopathy #1 Interpretation EKG Date: 08/12/20 Time: 09:02 Rhythm: NSR Rate (Beats/Min): 78 [place]: Normal P-Wave: Present QRS: Normal ST-T: Normal QT: Normal Comparison: NA - No Prior EKG Course - Vital Signs Last Recorded V/S: Last Vital Signs Temp 97.9 F 08/12/20 13:19 Pulse 80 08/12/20 13:19 Resp 18 08/12/20 13:19 BP 90/48 L 08/12/20 13:19 Pulse Ox 97 08/12/20 13:19 - Orders/Labs/Meds Orders: Active Orders 24 hr Category Date Time Status Chest 1V Frontal [CR] Stat Exams 08/12/20 08:39 Taken Head wo Cont [CT] Stat Exams 08/12/20 09:20 Taken CULTURE BLOOD [BC] Stat Lab 08/12/20 11:39 Received CULTURE BLOOD [BC] Stat Lab 08/12/20 11:39 Received CULTURE THROAT [RM] Stat Lab 08/12/20 09:12 Received CULTURE URINE [RM] Stat Lab 08/12/20 11:03 Received Sodium Chloride 0.9% [Normal Saline] 500 ml Med 08/12/20 08:45 Active IV .BOLUS Blood Culture x2 Reflex Set [OM.PC] Stat Oth 08/12/20 11:09 Ordered Medication Orders Sodium Chloride (Normal Saline) 500 mls @ 999 mls/hr IV .BOLUS MARIBEL Last Admin: 08/12/20 08:53 Dose: 999 mls/hr Documented by: ELLIS Labs: Laboratory Tests 08/12/20 08/12/20 08/12/20 Range/Units 08:39 08:59 08:59 WBC 11.1 H (5.0-10.0) 10^3/uL RBC 4.44 (4.00-5.50) 10^6/uL Hgb 14.5 (12.0-16.0) g/dL Hct 42.0 (37.0-47.0) % MCV 94.6 H (82.0-94.0) fL MCH 32.7 H (27.0-32.0) pg MCHC 34.5 (33.0-38.0) g/dL RDW Coeff of Kortney 14.9 (11.0-15.0) % Plt Count 261 (150-400) 10^3/uL Neut % (Auto) 76.4 (35-85) % Lymph % (Auto) 12.5 (10-55) % [place] % (Auto) 9.8 (0-16) % Eos % (Auto) 1.1 (0-5) % Baso % (Auto) 0.2 (0-3) % Neut # (Auto) 8.47 H (1.80-7.00) 10^3/uL Lymph # (Auto) 1.39 (1.00-4.80) 10^3/uL [place] # (Auto) 1.09 H (0.00-0.80) 10^3/uL Eos # (Auto) 0.12 (0.00-0.45) 10^3/uL Baso # (Auto) 0.02 10^3/uL PT 11.6 (9.7-12.3) SEC INR 1.06 (0.92-1.18) Sodium (136-145) mEq/L Potassium (3.5-5.0) mEq/L Chloride (98-106) mEq/L Carbon Dioxide (21-32) mmol/L BUN (7-18) mg/dL Creatinine (0.6-1.0) mg/dL Est Cr Clr Drug Dosing mL/min Estimated GFR (MDRD) (>=60) mL/min Glucose (75-99) mg/dL Lactic Acid (0.4-2.0) mmol/L Calcium (8.4-10.1) mg/dL Total Bilirubin (0.0-1.0) mg/dL AST (15-37) U/L ALT (12-78) U/L Alkaline Phosphatase (46-116) U/L Lactate Dehydrogenase (100-190) U/L Creatine Kinase (21-215) U/L Troponin I (0.00-0.06) ng/mL Total Protein (6.4-8.2) g/dL Albumin (3.4-5.0) g/dL Urine Color Yellow (YELLOW) Urine Appearance Cloudy (CLEAR) Urine pH 5.5 (4.5-8.0) Ur Specific Anderson >= 1.030 H (1.003-1.020) Urine Protein >=300 H (NEGATIVE) mg/dL Urine Glucose (UA) Negative (NEGATIVE) mg/dL Urine Ketones 15 H (NEGATIVE) mg/dL Urine Occult Blood Trace-intact H (NEGATIVE) Urine Nitrite Negative (NEGATIVE) Urine Bilirubin Negative (NEGATIVE) Urine Urobilinogen 1.0 (0.2-1.0) EU/dL Ur Leukocyte Esterase Large H (NEGATIVE) Urine RBC 0-5 (0-5) /HPF Urine WBC >100 H (0-5) /HPF Ur Squamous Epith Cells Many H (NOT SEEN) /HPF Urine Bacteria Moderate H (NOT SEEN) /HPF Urinalysis Comment 03/21/21 03/21/21 Range/Units 08:59 11:39 WBC (5.0-10.0) 10^3/uL RBC (4.00-5.50) 10^6/uL Hgb (12.0-16.0) g/dL Hct (37.0-47.0) % MCV (82.0-94.0) fL MCH (27.0-32.0) pg MCHC (33.0-38.0) g/dL RDW Coeff of Kortney (11.0-15.0) % Plt Count (150-400) 10^3/uL Neut % (Auto) (35-85) % Lymph % (Auto) (10-55) % [place] % (Auto) (0-16) % Eos % (Auto) (0-5) % Baso % (Auto) (0-3) % Neut # (Auto) (1.80-7.00) 10^3/uL Lymph # (Auto) (1.00-4.80) 10^3/uL [place] # (Auto) (0.00-0.80) 10^3/uL Eos # (Auto) (0.00-0.45) 10^3/uL Baso # (Auto) 10^3/uL PT (9.7-12.3) SEC INR (0.92-1.18) Sodium 140 (136-145) mEq/L Potassium 3.3 L (3.5-5.0) mEq/L Chloride 102 (98-106) mEq/L Carbon Dioxide 27 (21-32) mmol/L BUN 35 H D (7-18) mg/dL Creatinine 1.1 H D (0.6-1.0) mg/dL Est Cr Clr Drug Dosing 40.31 mL/min Estimated GFR (MDRD) 49 L (>=60) mL/min Glucose 133 H D (75-99) mg/dL Lactic Acid 1.3 (0.4-2.0) mmol/L Calcium 9.1 (8.4-10.1) mg/dL Total Bilirubin 0.5 (0.0-1.0) mg/dL AST 23 (15-37) U/L ALT 27 (12-78) U/L Alkaline Phosphatase 106 (46-116) U/L Lactate Dehydrogenase 253 H (100-190) U/L Creatine Kinase 85 (21-215) U/L Troponin I 0.051 (0.00-0.06) ng/mL Total Protein 6.0 L (6.4-8.2) g/dL Albumin 2.6 L (3.4-5.0) g/dL Urine Color (YELLOW) Urine Appearance (CLEAR) Urine pH (4.5-8.0) Ur Specific Anderson (1.003-1.020) Urine Protein (NEGATIVE) mg/dL Urine Glucose (UA) (NEGATIVE) mg/dL Urine Ketones (NEGATIVE) mg/dL Urine Occult Blood (NEGATIVE) Urine Nitrite (NEGATIVE) Urine Bilirubin (NEGATIVE) Urine Urobilinogen (0.2-1.0) EU/dL Ur Leukocyte Esterase (NEGATIVE) Urine RBC (0-5) /HPF Urine WBC (0-5) /HPF Ur Squamous Epith Cells (NOT SEEN) /HPF Urine Bacteria (NOT SEEN) /HPF Urinalysis Comment Meds: Medications Generic Name Dose Route Start Last Admin Trade Name Freq PRN Reason Stop Dose Admin Sodium Chloride 500 mls @ 999 mls/hr 08/12/20 08:45 08/12/20 08:53 Normal Saline IV 999 mls/hr .BOLUS MARIBEL Administration Discontinued Medications Generic Name Dose Route Start Last Admin Trade Name Freq PRN Reason Stop Dose Admin Morphine Sulfate 4 mg 08/12/20 08:38 08/12/20 08:53 Morphine 4 Mg/Ml Vial IVPUSH 08/12/20 08:39 4 mg ONETIME ONE Administration Ondansetron HCl 4 mg 08/12/20 08:37 08/12/20 08:53 Ondansetron 4 Mg/2 Ml Sdv IVPUSH 08/12/20 08:38 4 mg STAT STA Administration - Radiology Interpretation Free Text/Narrative:: Head CT: No acute findings CT Results Date: 08/12/20 CT Results Time: 10:55 - Re-Assessments/Exams Free Text/Narrative Re-Assessment/Exam: 08/12/20 11:11 Labs reviewed. UA was cath urine. UTI. Will add lactic acid and blood cultures to patient. Once have Lactic acid, will call and speak to her oncologist at [facility] Dr. Sandoval. 08/12/20 12:40 I have reviewed all labs. I called and spoke to Dr. Bertrand the oncologist at [facility] currently prison keeper. He reports the patient has a UTI and some dehydration. Admit and place on Levaquin. If improvement may discharge home in 1-2 days on PO Levaquin and have followup with oncologist and PCP. Will admit. Departure - Departure Time of Disposition: 13:29 Disposition: Refer to Observation Condition: Fair Clinical Impression: UTI, Urinary tract infectious disease, General weakness, Dehydration - Discharge Information *PRESCRIPTION DRUG MONITORING PROGRAM REVIEWED*: Not Applicable *COPY OF PRESCRIPTION DRUG MONITORING REPORT IN PATIENT JOSE: Not Applicable Sepsis Event Note (ED) - Evaluation Sepsis Screening Result: No Definite Risk - Focused Exam Vital Signs: Vital Signs Temp Pulse Resp BP Pulse Ox 08/12/20 08:26 96.5 F L 88 18 139/72 100 - My Orders Last 24 Hours: My Active Orders 08/12/20 08:39 Chest 1V Frontal [CR] Stat 08/12/20 08:45 Sodium Chloride 0.9% [Normal Saline] 500 ml IV .BOLUS 08/12/20 09:12 CULTURE THROAT [RM] Stat 08/12/20 09:20 Head wo Cont [CT] Stat 08/12/20 11:03 CULTURE URINE [RM] Stat 08/12/20 11:09 Blood Culture x2 Reflex Set [OM.PC] Stat 08/12/20 11:39 CULTURE BLOOD [BC] Stat CULTURE BLOOD [BC] Stat - Assessment/Plan Last 24 Hours: My Active Orders 08/12/20 08:39 Chest 1V Frontal [CR] Stat 08/12/20 08:45 Sodium Chloride 0.9% [Normal Saline] 500 ml IV .BOLUS 08/12/20 09:12 CULTURE THROAT [RM] Stat 08/12/20 09:20 Head wo Cont [CT] Stat 08/12/20 11:03 CULTURE URINE [RM] Stat 08/12/20 11:09 Blood Culture x2 Reflex Set [OM.PC] Stat 08/12/20 11:39 CULTURE BLOOD [BC] Stat CULTURE BLOOD [BC] Stat Plan: PLEASE SEE RN NOTE FOR PFSH
[2020-08-12] MEDS ORDERED: Non-Formulary Medication 1 Each (Acetaminophen [Tylenol Extra Strength] 500 MG Tablet) PO PRN (14:32)
[2020-08-12] MEDS ORDERED: MEGESTROL PO PRN (14:32)
[2020-08-12] MEDS ORDERED: Non-Formulary Medication 1 Each (Oxycodone [Oxycodone] 5 MG Tablet) PO PRN (14:32)
[2020-08-12] MEDS ORDERED: Non-Formulary Medication 1 Each (Omeprazole Magnesium [Prilosec Otc] 20 MG Tablet.Dr) PO PRN (14:32)
[2020-08-12] MEDS ORDERED: ONDANSETRON 8 MG PO PRN (14:32)
[2020-08-12] MEDS ORDERED: PROMETHAZINE TOP SCH (14:45)
[2020-08-12] MEDS ORDERED: Sodium Chloride 0.9% 1,000 ML IV SCH (14:50)
[2020-08-12] MEDS ORDERED: Morphine 2 MG/ML SYRINGE IVPUSH PRN (14:50)
[2020-08-12] MEDS ORDERED: Levofloxacin/Dextrose 5%-Water 500 MG in Premix Bag 1 BAG IV ONE (14:50)
[2020-08-12] MEDS ORDERED: Acetaminophen/HYDROcodone 325-5 MG Tab PO PRN (14:50)
[2020-08-12] MEDS: Nicotine 21 MG/24 Hr Patch TRDERM SCH (15:24)
[2020-08-12] MEDS: Enoxaparin 30 MG/0.3 ML Syringe SUBCUT SCH (15:25)
[2020-08-12] MEDS: Potassium Chloride 10 MEQ Tab.ER PO SCH (18:05)
[2020-08-12] MEDS: [UNRECOGNIZED DRUG - OTHER] PO SCH (19:00)
[2020-08-12] MEDS: Non-Formulary Medication 1 Each (Gabapentin [Neurontin] 100 MG Cap) PO SCH (19:27)
[2020-08-12] MEDS ORDERED: Sodium Chloride 0.9% 500 ML IV ONE (19:41)
--- NOTE | 2020-08-12 19:45 | PCM.SN.2 ---
- Free Text/Narrative Note: 08/12/201939 RN has notified me patient blood pressure is 82/50. Patient reports when she got up to go the bathroom, she felt lightheaded. But has no symptoms when she sat back down in the bed. She is alert and oriented and does have any complaints other than headache. Patient HR is 80. Patient was started on Lisinopril Thursday. I have discontinued this medication, she did take it this morning. I have added another 500ml Bolus. She is currently getting NS at 75ml/hr. RN will keep me informed of patient BP and if it responds to the bolus. I changed the BP cuff to appropriate size smaller cuff. The BP is currently 94/55. Will continue to monitor her BP. Will continue fluids. Will continue to monitor and consider pressers if MAP drops to pressor level. Currently her MAP is 67.
[2020-08-12] MEDS ORDERED: Non-Formulary Medication 1 Each (Melatonin [Melatonin] 3 MG Capsule) PO SCH (20:00)
[2020-08-12] MEDS: Melatonin 3 MG Tab PO SCH (20:11)
[2020-08-12] MEDS: Acetaminophen 500 MG Tab PO PRN (20:11)
[2020-08-13] MEDS ORDERED: Sodium Chloride 0.9% 1,000 ML IV SCH (06:30)
[2020-08-13 07:32] LABS: CHLORIDE,CL 108 mEq/L (98-106); SODIUM,NA 142 mEq/L (136-145)
[2020-08-13] MEDS: Venlafaxine 75 MG Cap.ER **OWN MED PO SCH (07:33)
[2020-08-13] MEDS: [UNRECOGNIZED DRUG - OTHER] PO SCH ×2 (07:35→17:29)
[2020-08-13] MEDS: VITAMIN D3 PO SCH (07:36)
[2020-08-13] MEDS: [UNRECOGNIZED DRUG - OTHER] PO SCH (07:36)
[2020-08-13] MEDS: CALCIUM CARBONATE PO SCH (07:36)
[2020-08-13] MEDS: Non-Formulary Medication 1 Each (Cholecalciferol (Vitamin D3) [Vitamin D3] 5,000 UNIT Tabl PO SCH (07:36)
[2020-08-13] MEDS: Non-Formulary Medication 1 Each (Aspirin [Children's Aspirin] 81 MG Tab.Chew) PO SCH (07:36)
[2020-08-13] MEDS: Non-Formulary Medication 1 Each (Dexamethasone [Dexamethasone] 4 MG Tablet) PO SCH (07:37)
[2020-08-13] MEDS: Non-Formulary Medication 1 Each (Gabapentin [Neurontin] 100 MG Cap) PO SCH ×3 (07:38→20:15)
[2020-08-13] MEDS: Nicotine 21 MG/24 Hr Patch TRDERM SCH (07:39)
[2020-08-13] MEDS: OXYBUTYNIN CHLORIDE 10 MG PO SCH (07:40)
[2020-08-13] MEDS: Non-Formulary Medication 1 Each (Multivitamin/Iron/Folic Acid [Centrum Adults Tablet] 1 EA PO SCH (07:40)
[2020-08-13] MEDS: VENLAFAXINE 150 MG PO SCH (07:41)
[2020-08-13] MEDS: Non-Formulary Medication 1 Each (Polyethylene Glycol 3350 [Miralax] 17 GM Packet) PO SCH (07:41)
[2020-08-13] MEDS: Potassium Chloride 10 MEQ Tab.ER PO SCH ×2 (07:43→17:30)
[2020-08-13] MEDS: MAGNESIUM OXIDE 200 MG PO SCH (07:44)
[2020-08-13] MEDS: Acetaminophen 500 MG Tab PO PRN ×2 (07:53→16:20)
[2020-08-13] MEDS ORDERED: Lisinopril 10 MG Tab **OWN MED PO SCH (08:00)
[2020-08-13] MEDS ORDERED: CANNABIDIOL SL SCH (08:00)
[2020-08-13] MEDS: Nystatin Susp 100,000 Unit/ML 5 ML UD Cup PO SCH ×3 (13:00→20:15)
[2020-08-13] MEDS ORDERED: Levofloxacin/Dextrose 5%-Water 250 MG in Premix Bag 1 BAG IV SCH (15:00)
[2020-08-13] MEDS: Enoxaparin 30 MG/0.3 ML Syringe SUBCUT SCH (16:20)
[2020-08-13] MEDS: Melatonin 3 MG Tab PO SCH (20:15)
[2020-08-13] MEDS ORDERED: Metoprolol Tartrate 50 MG Tab PO STA (22:06)
--- NOTE | 2020-08-13 23:04 | PCM.PN ---
- General Info Date of Service: 08/13/20 Admission Dx/Problem (Free Text): This patient is a 69 year old female that presented to the ER yesterday. Patient reported that she has a history of colon cancer with metastatic disease to the lungs. Patient had chemo treatment about 4-5 weeks ago. She reported last week Thursday she was seen for abdominal pain, general weakness, and diarrhea. She was admitted for low potassium which did correct and felt a lot better on . Was discharged home. She did have an elevated blood pressure on admission and was treated and sent home with Lisinopril. States she didn't get any potassium as the prescription wasnt ready. Patient reported Thursday night she began to feel weak again. Upon arrival to the ED again, she reported feeling generally weak, nauseated, and having some mild shortness of breath. She admits she fell once Thursday night due to being generally weak and feeling off balance. Patient reported she had fallen again 3 more times on Thursday due to generally feeling weak and off balance due to the weakness. She admits Thursday night she hit the left front of her face that caused bruising under her left eye. Patient denied headache, loc, v, d, f, chest pain, abd pain, urinary/bowel changes, rashes, edema, neck pain, pelvis/hip pain, any extremity pain while in ED. Subjective Update: Kemal Shah, admitting provider, did consult with oncologist yesterday. Laboratory work did confirm UTI and patient was admitted on IV Levaquin. Ping states she is feeling a lot better today. Continues to have some weakness but is able to ambulate for the most part on her own. Has 1 person assist to prevent falls. Denies any urinary complaints today. No further dizziness upon ambulating. Patient was given IV fluids and appetite has improved. She was able to eat yesterday evening and again this morning. Urine and blood cultures were ordered. IV fluid replacement initiated yesterday. Functional Status: Reports: Pain Controlled, Tolerating Diet, Ambulating, Urinating - Review of Systems General: Reports: Weakness (improved). Denies: Fever HEENT: Reports: No Symptoms Pulmonary: Reports: No Symptoms Cardiovascular: Reports: No Symptoms Gastrointestinal: Reports: No Symptoms Genitourinary: Reports: No Symptoms. Denies: Frequency, Burning, Urgency Musculoskeletal: Reports: No Symptoms Skin: Reports: No Symptoms Neurological: Reports: No Symptoms - Patient Data Vitals - Most Recent: Last Vital Signs Temp 99.3 F 08/13/20 22:07 Pulse 91 08/13/20 22:12 Resp 18 08/13/20 22:07 BP 198/96 H 08/13/20 22:12 Pulse Ox 99 08/13/20 22:07 Weight - Most Recent: 112 lb 4.8 oz Lab Results Last 24 Hours: Laboratory Results - last 24 hr 08/13/20 08/13/20 Range/Units 07:14 07:14 WBC 8.3 (5.0-10.0) 10^3/uL RBC 3.86 L (4.00-5.50) 10^6/uL Hgb 12.4 (12.0-16.0) g/dL Hct 36.8 L (37.0-47.0) % MCV 95.3 H (82.0-94.0) fL MCH 32.1 H (27.0-32.0) pg MCHC 33.7 (33.0-38.0) g/dL RDW Coeff of Kortney 14.9 (11.0-15.0) % Plt Count 217 (150-400) 10^3/uL Neut % (Auto) 65.4 (35-85) % Lymph % (Auto) 20.6 (10-55) % [place] % (Auto) 11.0 (0-16) % Eos % (Auto) 2.8 (0-5) % Baso % (Auto) 0.2 (0-3) % Neut # (Auto) 5.40 (1.80-7.00) 10^3/uL Lymph # (Auto) 1.70 (1.00-4.80) 10^3/uL [place] # (Auto) 0.91 H (0.00-0.80) 10^3/uL Eos # (Auto) 0.23 (0.00-0.45) 10^3/uL Baso # (Auto) 0.02 10^3/uL Sodium 142 (136-145) mEq/L Potassium 3.5 (3.5-5.0) mEq/L Chloride 108 H (98-106) mEq/L Carbon Dioxide 23 (21-32) mmol/L BUN 26 H (7-18) mg/dL Creatinine 0.8 (0.6-1.0) mg/dL Est Cr Clr Drug Dosing 51.87 mL/min Estimated GFR (MDRD) > 60 (>=60) mL/min Glucose 158 H (75-99) mg/dL Calcium 8.4 (8.4-10.1) mg/dL Garry Results Last 24 Hours: Microbiology 08/12/20 11:39 Aerobic Blood Culture - Preliminary Blood - Venous NO GROWTH AFTER 1 DAY Anaerobic Blood Culture - Preliminary NO GROWTH AFTER 1 DAY 08/12/20 11:39 Aerobic Blood Culture - Preliminary Blood - Venous - Lab Draw NO GROWTH AFTER 1 DAY Anaerobic Blood Culture - Preliminary NO GROWTH AFTER 1 DAY 08/12/20 11:03 Urine Culture - Preliminary Urine, Catheterized 08/12/20 09:12 Throat Culture - Preliminary Throat YEAST Med Orders - Current: Current Medications Acetaminophen (Acetaminophen 500 Mg Tab) 500 mg PO QID PRN PRN Reason: Pain Last Admin: 08/13/20 16:20 Dose: 500 mg Documented by: Hydrocodone Bitart/Acetaminophen (Acetaminophen/Hydrocodone 325-5 Mg Tab) 1 tab PO Q4H PRN PRN Reason: Pain (moderate 4-6) Enoxaparin Sodium (Enoxaparin 30 Mg/0.3 Ml Syringe) 30 mg SUBCUT Q24H [facility] Last Admin: 08/13/20 16:20 Dose: 30 mg Documented by: Sodium Chloride (Normal Saline) 500 mls @ 999 mls/hr IV .BOLUS [facility] Last Admin: 08/12/20 08:53 Dose: 999 mls/hr Documented by: Levofloxacin/Dextrose 250 mg/ (Premix) 50 mls @ 50 mls/hr IV Q24H [facility] Last Admin: 08/13/20 16:19 Dose: 50 mls/hr Documented by: Melatonin (Melatonin 3 Mg Tab) 3 mg PO BEDTIME [facility] Last Admin: 08/13/20 20:15 Dose: 3 mg Documented by: Morphine Sulfate (Morphine 2 Mg/Ml Syringe) 2 mg IVPUSH Q2H PRN PRN Reason: Pain (severe 7-10) Nicotine (Nicotine 21 Mg/24 Hr Patch) 21 mg TRDERM DAILY [facility] Last Admin: 08/13/20 07:39 Dose: Not Given Documented by: Non-Formulary Medication (Aspirin [Children's Aspirin]) 81 mg PO DAILY [facility] Last Admin: 08/13/20 07:36 Dose: Not Given Documented by: Non-Formulary Medication (Calcium Carbonate/Vitamin D3 [Calcium 500-Vit D3 600 Caplet]) 1 tab PO DAILY [facility] Last Admin: 08/13/20 07:36 Dose: Not Given Documented by: Non-Formulary Medication (Cholecalciferol (Vitamin D3) [Vitamin D3]) 5,000 unit PO DAILY [facility] Last Admin: 08/13/20 07:36 Dose: Not Given Documented by: Non-Formulary Medication (Dexamethasone [Dexamethasone]) 2 tab PO DAILY [facility] Last Admin: 08/13/20 07:37 Dose: Not Given Documented by: Non-Formulary Medication (Gabapentin [Neurontin]) 100 mg PO TID [facility] Last Admin: 08/13/20 20:15 Dose: Not Given Documented by: Non-Formulary Medication (Magnesium Oxide [Mag-Oxide]) 800 mg PO DAILY [facility] Last Admin: 08/13/20 07:44 Dose: Not Given Documented by: Non-Formulary Medication (Megestrol [Megace 40 Mg/Ml Susp]) 10 ml PO DAILY PRN PRN Reason: Other Non-Formulary Medication (Multivitamin/Iron/Folic Acid [Centrum Adults Tablet]) 1 tab PO DAILY [facility] Last Admin: 08/13/20 07:40 Dose: Not Given Documented by: Non-Formulary Medication (Omeprazole Magnesium [Prilosec Otc]) 20 mg PO DAILY PRN PRN Reason: Indigestion Non-Formulary Medication (Ondansetron) 8 mg PO Q6H PRN PRN Reason: Nausea Oxybutynin Chloride Er 10 Mg Tab Own Med 0 mg PO DAILY [facility] Last Admin: 08/13/20 07:40 Dose: 10 mg Documented by: Non-Formulary Medication (Oxycodone [Oxycodone]) 5 mg PO Q6H PRN PRN Reason: Pain Non-Formulary Medication (Policos/Inositol Niac/Garlic [Ghalhmofufm-Liktmh-Ewcqdp]) 1 tab PO DAILY [facility] Last Admin: 08/13/20 07:41 Dose: 1 tab Documented by: Non-Formulary Medication (Polyethylene Glycol 3350 [Miralax]) 17 gm PO DAILY [facility] Last Admin: 08/13/20 07:41 Dose: Not Given Documented by: Non-Formulary Medication (Promethazine [Phenergan]) 25 mg TOP ASDIRECTED [facility] Venlafaxine Er 150 (Mg Cap Own Med) 0 mg PO DAILY [facility] Last Admin: 08/13/20 07:41 Dose: Not Given Documented by: Spectrazyme Murguia 9x (Es Own Med) 1 cap PO TIDMEALS [facility] Last Admin: 08/13/20 17:29 Dose: 1 cap Documented by: Nystatin (Nystatin Susp 100,000 Unit/Ml 5 Ml Ud Cup) 5 ml PO QID [facility] Last Admin: 08/13/20 20:15 Dose: 5 ml Documented by: Potassium Chloride (Potassium Chloride 10 Meq Tab.Er) 20 meq PO BIDMEALS [facility] Last Admin: 08/13/20 17:30 Dose: 20 meq Documented by: Venlafaxine HCl (Venlafaxine 75 Mg Cap.Er Own Med) 75 mg PO DAILY [facility] Last Admin: 08/13/20 07:33 Dose: Not Given Documented by: Discontinued Medications Levofloxacin/Dextrose 500 mg/ (Premix) 100 mls @ 100 mls/hr IV ONETIME ONE Stop: 08/12/20 15:49 Last Admin: 08/12/20 15:24 Dose: 100 mls/hr Documented by: Sodium Chloride (Normal Saline) 1,000 mls @ 75 mls/hr IV ASDIRECTED [facility] Stop: 08/13/20 04:09 Last Admin: 08/12/20 15:24 Dose: 75 mls/hr Documented by: Sodium Chloride (Normal Saline) 500 mls @ 500 mls/hr IV .BOLUS ONE Stop: 08/12/20 20:40 Last Admin: 08/12/20 20:10 Dose: 500 mls/hr Documented by: Sodium Chloride (Normal Saline) 1,000 mls @ 75 mls/hr IV ASDIRECTED [facility] Last Admin: 08/12/20 21:10 Dose: 75 mls/hr Documented by: Lisinopril (Lisinopril 10 Mg Tab Own Med*) 10 mg PO DAILY [facility] Metoprolol Tartrate (Metoprolol Tartrate 50 Mg Tab) 50 mg PO ONETIME STA Stop: 08/13/20 22:07 Last Admin: 08/13/20 22:12 Dose: 50 mg Documented by: Morphine Sulfate (Morphine 4 Mg/Ml Vial) 4 mg IVPUSH ONETIME ONE Stop: 08/12/20 08:39 Last Admin: 08/12/20 08:53 Dose: 4 mg Documented by: Non-Formulary Medication (Acetaminophen [Tylenol Extra Strength]) 1,000 mg PO QID PRN PRN Reason: Pain Spectrazyme Murguia 9x (Es Own Med) 1 cap PO TID [facility] Last Admin: 08/13/20 07:35 Dose: 1 cap Documented by: Non-Formulary Medication (Cannabidiol (Cbd) Extract [Cbd Oil]) 8 drop SL DAILY [facility] Non-Formulary Medication (Melatonin [Melatonin]) 3 mg PO BEDTIME [facility] Ondansetron HCl (Ondansetron 4 Mg/2 Ml Sdv) 4 mg IVPUSH STAT STA Stop: 08/12/20 08:38 Last Admin: 08/12/20 08:53 Dose: 4 mg Documented by: - Exam General: Alert, Oriented, Cooperative, No Acute Distress Lungs: Clear to Auscultation, Normal Respiratory Effort Cardiovascular: Regular Rate, Regular Rhythm GI/Abdominal Exam: Normal Bowel Sounds, Soft, Non-Tender, No Distention, No Mass Extremities: Normal Inspection, No Pedal Edema Skin: Warm, Dry, Intact Psy/Mental Status: Alert, Normal Affect, Normal Mood - Patient Data Lab Results Last 24 hrs: Laboratory Results - last 24 hr 08/13/20 08/13/20 Range/Units 07:14 07:14 WBC 8.3 (5.0-10.0) 10^3/uL RBC 3.86 L (4.00-5.50) 10^6/uL Hgb 12.4 (12.0-16.0) g/dL Hct 36.8 L (37.0-47.0) % MCV 95.3 H (82.0-94.0) fL MCH 32.1 H (27.0-32.0) pg MCHC 33.7 (33.0-38.0) g/dL RDW Coeff of Kortney 14.9 (11.0-15.0) % Plt Count 217 (150-400) 10^3/uL Neut % (Auto) 65.4 (35-85) % Lymph % (Auto) 20.6 (10-55) % [place] % (Auto) 11.0 (0-16) % Eos % (Auto) 2.8 (0-5) % Baso % (Auto) 0.2 (0-3) % Neut # (Auto) 5.40 (1.80-7.00) 10^3/uL Lymph # (Auto) 1.70 (1.00-4.80) 10^3/uL [place] # (Auto) 0.91 H (0.00-0.80) 10^3/uL Eos # (Auto) 0.23 (0.00-0.45) 10^3/uL Baso # (Auto) 0.02 10^3/uL Sodium 142 (136-145) mEq/L Potassium 3.5 (3.5-5.0) mEq/L Chloride 108 H (98-106) mEq/L Carbon Dioxide 23 (21-32) mmol/L BUN 26 H (7-18) mg/dL Creatinine 0.8 (0.6-1.0) mg/dL Est Cr Clr Drug Dosing 51.87 mL/min Estimated GFR (MDRD) > 60 (>=60) mL/min Glucose 158 H (75-99) mg/dL Calcium 8.4 (8.4-10.1) mg/dL Result Diagrams: 08/13/20 07:14 08/13/20 07:14 Garry Results Last 24 hrs: Microbiology 08/12/20 11:39 Aerobic Blood Culture - Preliminary Blood - Venous NO GROWTH AFTER 1 DAY Anaerobic Blood Culture - Preliminary NO GROWTH AFTER 1 DAY 08/12/20 11:39 Aerobic Blood Culture - Preliminary Blood - Venous - Lab Draw NO GROWTH AFTER 1 DAY Anaerobic Blood Culture - Preliminary NO GROWTH AFTER 1 DAY 08/12/20 11:03 Urine Culture - Preliminary Urine, Catheterized 08/12/20 09:12 Throat Culture - Preliminary Throat YEAST Sepsis Event Note - Evaluation Sepsis Screening Result: No Definite Risk - Focused Exam Vital Signs: Vital Signs Temp Temp Pulse Pulse Resp BP BP 08/13/20 22:12 91 198/96 H 08/13/20 22:07 99.3 F 91 18 198/96 H 08/13/20 20:00 98.2 F 95 18 187/85 H 08/13/20 16:50 98.2 F 08/13/20 16:20 100 F 08/13/20 16:00 100 F 80 18 142/79 H 08/13/20 12:00 97.8 F 77 18 131/61 Pulse Ox 08/13/20 22:12 08/13/20 22:07 99 08/13/20 20:00 18 L 08/13/20 16:50 08/13/20 16:20 08/13/20 16:00 100 08/13/20 12:00 99 - Problem List & Annotations (1) General weakness SNOMED Code(s): 97789231 Code(s): R53.1 - WEAKNESS Status: Acute Current Visit: Yes (2) UTI, Urinary tract infectious disease SNOMED Code(s): 24626700 Code(s): N39.0 - URINARY TRACT INFECTION, SITE NOT SPECIFIED Status: Acute Current Visit: Yes (3) Hypokalemia SNOMED Code(s): 17753649 Code(s): E87.6 - HYPOKALEMIA Status: Resolved Current Visit: No - Problem List Review Problem List Initiated/Reviewed/Updated: Yes - My Orders Last 24 Hours: My Active Orders 08/13/20 12:00 Nystatin [Mycostatin] 5 ml PO QID 08/13/20 17:46 Saline Lock Insert [OM.PC] Routine - Plan Plan:: Urine and blood cultures pending. Vital signs stable this morning. Potassium has corrected and currently 3.5. WBC has improved and normal today at 8300. Throat culture obtained for sore throat which did show yeast. Will give Nystatin swish and swallow QID. Discussed close observation, continuing IV antibiotics for another day. Patient in agreement. Will d/c IV fluids. Plan for possible dis charge tomorrow on oral antibiotics and will continue potassium supplementation.
[2020-08-14 07:27] LABS: CHLORIDE,CL 105 mEq/L (98-106); SODIUM,NA 140 mEq/L (136-145)
[2020-08-14] MEDS: Non-Formulary Medication 1 Each (Aspirin [Children's Aspirin] 81 MG Tab.Chew) PO SCH (07:37)
[2020-08-14] MEDS: [UNRECOGNIZED DRUG - OTHER] PO SCH ×2 (07:37→11:16)
[2020-08-14] MEDS: [UNRECOGNIZED DRUG - OTHER] PO SCH (07:38)
[2020-08-14] MEDS: CALCIUM CARBONATE PO SCH (07:38)
[2020-08-14] MEDS: VITAMIN D3 PO SCH (07:38)
[2020-08-14] MEDS: Non-Formulary Medication 1 Each (Cholecalciferol (Vitamin D3) [Vitamin D3] 5,000 UNIT Tabl PO SCH (07:38)
[2020-08-14] MEDS: Venlafaxine 75 MG Cap.ER **OWN MED PO SCH (07:39)
[2020-08-14] MEDS: Potassium Chloride 10 MEQ Tab.ER PO SCH (07:39)
[2020-08-14] MEDS: Non-Formulary Medication 1 Each (Gabapentin [Neurontin] 100 MG Cap) PO SCH (07:39)
[2020-08-14] MEDS: Non-Formulary Medication 1 Each (Dexamethasone [Dexamethasone] 4 MG Tablet) PO SCH (07:39)
[2020-08-14] MEDS: Nicotine 21 MG/24 Hr Patch TRDERM SCH (07:39)
[2020-08-14] MEDS: Non-Formulary Medication 1 Each (Multivitamin/Iron/Folic Acid [Centrum Adults Tablet] 1 EA PO SCH (07:40)
[2020-08-14] MEDS: MAGNESIUM OXIDE 200 MG PO SCH (07:40)
[2020-08-14] MEDS: Nystatin Susp 100,000 Unit/ML 5 ML UD Cup PO SCH ×2 (07:40→11:18)
[2020-08-14] MEDS: OXYBUTYNIN CHLORIDE 10 MG PO SCH (07:40)
[2020-08-14] MEDS: VENLAFAXINE 150 MG PO SCH (07:41)
[2020-08-14] MEDS: Non-Formulary Medication 1 Each (Polyethylene Glycol 3350 [Miralax] 17 GM Packet) PO SCH (07:41)
[2020-08-14 11:15] VITALS: BP 150/90; PULSE 75
--- NOTE | 2020-08-14 11:59 | PCM.DCSUM1 ---
Discharge Summary - Hospital Course Brief History: See admission diagnosis/problem for history Diagnosis: Stroke: No - Discharge Data Discharge Date: 08/14/20 Discharge Disposition: Home, Self-Care 01 Condition: Good - Referral to Home Health Primary Care Physician: Glory Rodrigues PA-C - Discharge Diagnosis/Problem(s) (1) General weakness SNOMED Code(s): 42492797 ICD Code: R53.1 - WEAKNESS Status: Acute Current Visit: Yes (2) UTI, Urinary tract infectious disease SNOMED Code(s): 32738979 ICD Code: N39.0 - URINARY TRACT INFECTION, SITE NOT SPECIFIED Status: Acute Current Visit: Yes (3) Hypokalemia SNOMED Code(s): 73321358 ICD Code: E87.6 - HYPOKALEMIA Status: Resolved Current Visit: No (4) Yeast infection SNOMED Code(s): 8510780 ICD Code: B37.9 - CANDIDIASIS, UNSPECIFIED Status: Acute Current Visit: Yes - Patient Instructions Diet: Usual Diet as Tolerated Activity: As Tolerated Notify Provider of: Fever, Nausea and/or Vomiting - Discharge Plan *PRESCRIPTION DRUG MONITORING PROGRAM REVIEWED*: Not Applicable *COPY OF PRESCRIPTION DRUG MONITORING REPORT IN PATIENT JOSE: Not Applicable Prescriptions/Med Rec: Cefuroxime [Ceftin] 250 mg PO BID #14 tab Potassium Chloride [Klor-Con 10] 20 meq PO BIDMEALS 30 Days #120 tab.er Nystatin [Mycostatin] 5 ml PO QID 8 Days #180 ml Home Medications: Home Meds Cholecalciferol (Vitamin D3) [Vitamin D3] 5,000 unit PO DAILY 06/13/16 [History] Aspirin [Children's Aspirin] 81 mg PO DAILY 11/28/17 [History] Omeprazole Magnesium [Prilosec Otc] 20 mg PO DAILY PRN 11/28/17 [History] Acetaminophen [Tylenol Extra Strength] 1,000 mg PO QID PRN 08/08/20 [History] Amylase/Lipase/Protease [Creon DR 24,000 Unit] 1 - 2 cap PO TID 08/08/20 [History] Calcium Carbonate/Vitamin D3 [Calcium 500-Vit D3 600 Caplet] 1 tab PO DAILY 08/08/20 [History] Cannabidiol (Cbd) Extract [CBD Oil] 8 drop SL DAILY 08/08/20 [History] Gabapentin [Neurontin] 100 mg PO TID 08/08/20 [History] Magnesium Oxide [Mag-Oxide] 800 mg PO DAILY 08/08/20 [History] Megestrol [Megace 40 MG/ML Susp] 10 ml PO DAILY PRN 08/08/20 [History] Melatonin 3 mg PO BEDTIME 08/08/20 [History] Multivitamin/Iron/Folic Acid [Centrum Adults Tablet] 1 tab PO DAILY 08/08/20 [History] Ondansetron [Zofran Odt] 8 mg PO Q6H PRN 08/08/20 [History] Policos/Inositol Niac/Garlic [Kwzafrahwoj-Yocnhh-Fipjno] 1 tab PO DAILY 08/08/20 [History] Promethazine [Phenergan] 25 mg TOP ASDIRECTED 08/08/20 [History] Venlafaxine HCl [Venlafaxine ER] 150 mg PO DAILY 08/08/20 [History] Venlafaxine [Effexor XR] 75 mg PO DAILY 08/08/20 [History] polyethylene glycoL 3350 [MiraLAX] 17 gm PO DAILY 08/08/20 [History] lisinopriL [Prinivil] 10 mg PO DAILY #30 tablet 08/09/20 [Rx] Minocycline HCl 100 mg PO DAILY 08/12/20 [History] Oxybutynin 10 mg PO DAILY 08/12/20 [History] oxyCODONE 5 mg PO Q6H PRN 08/12/20 [History] Cefuroxime [Ceftin] 250 mg PO BID #14 tab 08/14/20 [Rx] Nystatin [Mycostatin] 5 ml PO QID 8 Days #180 ml 08/14/20 [Rx] Potassium Chloride [Klor-Con 10] 20 meq PO BIDMEALS 30 Days #120 tab.er 08/14/20 [Rx] Oxygen Therapy Mode: Room Air Forms: ED Department Discharge Referrals: Glory Rodrigues PA-C [Primary Care Provider] - 08/20/20 - Discharge Summary/Plan Comment DC Time >30 min.: Yes Discharge Summary/Plan Comment: Ping appears to be doing well today. Will discharge home today. Blood cultures were negative. Will initiate oral Ceftin, Potassium supplementation and Nystatin at discharge. Resume Lisinopril. Discussed blood pressures and patient does have a cuff at home. Recommend daily log of blood pressure readings. Encourage bringing in to follow up appointment with Glory Rodrigues on Thursday. Signs and symptoms to monitor for discussed. Follow up if any concerns. - General Info Admission Dx/Problem (Free Text: This patient is a 69 year old female that presented to the ER yesterday. Patient reported that she has a history of colon cancer with metastatic disease to the lungs. Patient had chemo treatment about 4-5 weeks ago. She reported last week Thursday she was seen for abdominal pain, general weakness, and diarrhea. She was admitted for low potassium which did correct and felt a lot better on . Was discharged home. She did have an elevated blood pressure on admission and was treated and sent home with Lisinopril. States she didn't get any potassium as the prescription wasnt ready. Patient reported Thursday night she began to feel weak again. Upon arrival to the ED again, she reported feeling generally weak, nauseated, and having some mild shortness of breath. She admits she fell once Thursday night due to being generally weak and feeling off balance. Patient reported she had fallen again 3 more times on Thursday due to generally feeling weak and off balance due to the weakness. She admits Thursday night she hit the left front of her face that caused bruising under her left eye. Patient denied headache, loc, v, d, f, chest pain, abd pain, urinary/bowel changes, rashes, edema, neck pain, pelvis/hip pain, any extremity pain while in ED. Subjective Update: Kemal Shah, admitting provider, did consult with oncologist yesterday. Laboratory work did confirm UTI and patient was admitted on IV Levaquin. Ping states she is feeling a lot better today. Continues to have some weakness but is able to ambulate for the most part on her own. Has 1 person assist to prevent falls. Denies any urinary complaints today. No further dizziness upon ambulating. Patient was given IV fluids and appetite has improved. She was able to eat yesterday evening and again this morning. Urine and blood cultures were ordered. IV fluid replacement initiated yesterday. 08/14/2020 Patient is doing well this morning and feels ready to be discharged home. States she has been up and feels steady on her feet. No further dizziness. States appetite continues to improve. - Review of Systems General: Reports: Weakness HEENT: Reports: No Symptoms Pulmonary: Reports: No Symptoms Cardiovascular: Reports: No Symptoms Gastrointestinal: Reports: No Symptoms Genitourinary: Reports: No Symptoms Musculoskeletal: Reports: No Symptoms Skin: Reports: No Symptoms Neurological: Reports: No Symptoms. Denies: Dizziness Psychiatric: Reports: No Symptoms - Patient Data Vitals - Most Recent: Last Vital Signs Temp 96.9 F 08/14/20 11:15 Pulse 75 08/14/20 11:15 Resp 16 08/14/20 11:15 BP 150/90 H 08/14/20 11:15 Pulse Ox 97 08/14/20 11:15 Weight - Most Recent: 112 lb 4.8 oz I&O - Last 24 hours: Intake & Output 08/13/20 08/14/20 08/14/20 22:59 06:59 14:59 Intake Total 200 Output Total 1850 Balance -1650 Lab Results - Last 24 hrs: Laboratory Results - last 24 hr 08/14/20 08/14/20 Range/Units 07:00 07:00 WBC 9.8 (5.0-10.0) 10^3/uL RBC 4.18 (4.00-5.50) 10^6/uL Hgb 13.6 (12.0-16.0) g/dL Hct 39.5 (37.0-47.0) % MCV 94.5 H (82.0-94.0) fL MCH 32.5 H (27.0-32.0) pg MCHC 34.4 (33.0-38.0) g/dL RDW Coeff of Kortney 14.8 (11.0-15.0) % Plt Count 230 (150-400) 10^3/uL Neut % (Auto) 69.2 (35-85) % Lymph % (Auto) 16.9 (10-55) % [place] % (Auto) 11.3 (0-16) % Eos % (Auto) 2.4 (0-5) % Baso % (Auto) 0.2 (0-3) % Neut # (Auto) 6.80 (1.80-7.00) 10^3/uL Lymph # (Auto) 1.66 (1.00-4.80) 10^3/uL [place] # (Auto) 1.11 H (0.00-0.80) 10^3/uL Eos # (Auto) 0.24 (0.00-0.45) 10^3/uL Baso # (Auto) 0.02 10^3/uL Sodium 140 (136-145) mEq/L Potassium 3.8 (3.5-5.0) mEq/L Chloride 105 (98-106) mEq/L Carbon Dioxide 27 (21-32) mmol/L BUN 12 D (7-18) mg/dL Creatinine 0.6 (0.6-1.0) mg/dL Est Cr Clr Drug Dosing 69.16 mL/min Estimated GFR (MDRD) > 60 (>=60) mL/min Glucose 114 H D (75-99) mg/dL Calcium 8.8 (8.4-10.1) mg/dL GEMA Results - Last 24 hrs: Microbiology 08/12/20 11:39 Aerobic Blood Culture - Preliminary Blood - Venous NO GROWTH AFTER 2 DAYS Anaerobic Blood Culture - Preliminary NO GROWTH AFTER 2 DAYS 08/12/20 11:39 Aerobic Blood Culture - Preliminary Blood - Venous - Lab Draw NO GROWTH AFTER 2 DAYS Anaerobic Blood Culture - Preliminary NO GROWTH AFTER 2 DAYS 08/12/20 09:12 Throat Culture - Final Throat YEAST 08/12/20 11:03 Urine Culture - Final Urine, Catheterized Med Orders - Current: Current Medications Acetaminophen (Acetaminophen 500 Mg Tab) 500 mg PO QID PRN PRN Reason: Pain Last Admin: 08/13/20 16:20 Dose: 500 mg Documented by: Hydrocodone Bitart/Acetaminophen (Acetaminophen/Hydrocodone 325-5 Mg Tab) 1 tab PO Q4H PRN PRN Reason: Pain (moderate 4-6) Enoxaparin Sodium (Enoxaparin 30 Mg/0.3 Ml Syringe) 30 mg SUBCUT Q24H [facility] Last Admin: 08/13/20 16:20 Dose: 30 mg Documented by: Heparin Sodium (Porcine) (Heparin Sodium 100 Units/Ml 5 Ml Syringe) 500 units FLUSH ASDIRECTED PRN PRN Reason: Other Sodium Chloride (Normal Saline) 500 mls @ 999 mls/hr IV .BOLUS [facility] Last Admin: 08/12/20 08:53 Dose: 999 mls/hr Documented by: Levofloxacin/Dextrose 250 mg/ (Premix) 50 mls @ 50 mls/hr IV Q24H [facility] Last Admin: 08/13/20 16:19 Dose: 50 mls/hr Documented by: Melatonin (Melatonin 3 Mg Tab) 3 mg PO BEDTIME [facility] Last Admin: 08/13/20 20:15 Dose: 3 mg Documented by: Morphine Sulfate (Morphine 2 Mg/Ml Syringe) 2 mg IVPUSH Q2H PRN PRN Reason: Pain (severe 7-10) Nicotine (Nicotine 21 Mg/24 Hr Patch) 21 mg TRDERM DAILY [facility] Last Admin: 08/14/20 07:39 Dose: Not Given Documented by: Non-Formulary Medication (Aspirin [Children's Aspirin]) 81 mg PO DAILY [facility] Last Admin: 08/14/20 07:37 Dose: Not Given Documented by: Non-Formulary Medication (Calcium Carbonate/Vitamin D3 [Calcium 500-Vit D3 600 Caplet]) 1 tab PO DAILY [facility] Last Admin: 08/14/20 07:38 Dose: Not Given Documented by: Non-Formulary Medication (Cholecalciferol (Vitamin D3) [Vitamin D3]) 5,000 unit PO DAILY [facility] Last Admin: 08/14/20 07:38 Dose: Not Given Documented by: Non-Formulary Medication (Dexamethasone [Dexamethasone]) 2 tab PO DAILY [facility] Last Admin: 08/14/20 07:39 Dose: Not Given Documented by: Non-Formulary Medication (Gabapentin [Neurontin]) 100 mg PO TID [facility] Last Admin: 08/14/20 07:39 Dose: Not Given Documented by: Non-Formulary Medication (Magnesium Oxide [Mag-Oxide]) 800 mg PO DAILY [facility] Last Admin: 08/14/20 07:40 Dose: Not Given Documented by: Non-Formulary Medication (Megestrol [Megace 40 Mg/Ml Susp]) 10 ml PO DAILY PRN PRN Reason: Other Non-Formulary Medication (Multivitamin/Iron/Folic Acid [Centrum Adults Tablet]) 1 tab PO DAILY [facility] Last Admin: 08/14/20 07:40 Dose: Not Given Documented by: Non-Formulary Medication (Omeprazole Magnesium [Prilosec Otc]) 20 mg PO DAILY PRN PRN Reason: Indigestion Non-Formulary Medication (Ondansetron) 8 mg PO Q6H PRN PRN Reason: Nausea Oxybutynin Chloride Er 10 Mg Tab Own Med 0 mg PO DAILY [facility] Last Admin: 08/14/20 07:40 Dose: 10 mg Documented by: Non-Formulary Medication (Oxycodone [Oxycodone]) 5 mg PO Q6H PRN PRN Reason: Pain Non-Formulary Medication (Policos/Inositol Niac/Garlic [Ejrgowfocnw-Tkzfol-Yinktq]) 1 tab PO DAILY [facility] Last Admin: 08/14/20 07:41 Dose: Not Given Documented by: Non-Formulary Medication (Polyethylene Glycol 3350 [Miralax]) 17 gm PO DAILY [facility] Last Admin: 08/14/20 07:41 Dose: Not Given Documented by: Non-Formulary Medication (Promethazine [Phenergan]) 25 mg TOP ASDIRECTED [facility] Venlafaxine Er 150 (Mg Cap Own Med) 0 mg PO DAILY [facility] Last Admin: 08/14/20 07:41 Dose: Not Given Documented by: Spectrazyme Murguia 9x (Es Own Med) 1 cap PO TIDMEALS [facility] Last Admin: 08/14/20 11:16 Dose: 1 cap Documented by: Nystatin (Nystatin Susp 100,000 Unit/Ml 5 Ml Ud Cup) 5 ml PO QID [facility] Last Admin: 08/14/20 11:18 Dose: 5 ml Documented by: Potassium Chloride (Potassium Chloride 10 Meq Tab.Er) 20 meq PO BIDMEALS [facility] Last Admin: 08/14/20 07:39 Dose: 20 meq Documented by: Venlafaxine HCl (Venlafaxine 75 Mg Cap.Er Own Med) 75 mg PO DAILY [facility] Last Admin: 08/14/20 07:39 Dose: Not Given Documented by: Discontinued Medications Levofloxacin/Dextrose 500 mg/ (Premix) 100 mls @ 100 mls/hr IV ONETIME ONE Stop: 08/12/20 15:49 Last Admin: 08/12/20 15:24 Dose: 100 mls/hr Documented by: Sodium Chloride (Normal Saline) 1,000 mls @ 75 mls/hr IV ASDIRECTED [facility] Stop: 08/13/20 04:09 Last Admin: 08/12/20 15:24 Dose: 75 mls/hr Documented by: Sodium Chloride (Normal Saline) 500 mls @ 500 mls/hr IV .BOLUS ONE Stop: 08/12/20 20:40 Last Admin: 08/12/20 20:10 Dose: 500 mls/hr Documented by: Sodium Chloride (Normal Saline) 1,000 mls @ 75 mls/hr IV ASDIRECTED [facility] Last Admin: 08/12/20 21:10 Dose: 75 mls/hr Documented by: Lisinopril (Lisinopril 10 Mg Tab Own Med*) 10 mg PO DAILY [facility] Metoprolol Tartrate (Metoprolol Tartrate 50 Mg Tab) 50 mg PO ONETIME STA Stop: 08/13/20 22:07 Last Admin: 08/13/20 22:12 Dose: 50 mg Documented by: Morphine Sulfate (Morphine 4 Mg/Ml Vial) 4 mg IVPUSH ONETIME ONE Stop: 08/12/20 08:39 Last Admin: 08/12/20 08:53 Dose: 4 mg Documented by: Non-Formulary Medication (Acetaminophen [Tylenol Extra Strength]) 1,000 mg PO QID PRN PRN Reason: Pain Spectrazyme Murguia 9x (Es Own Med) 1 cap PO TID [facility] Last Admin: 08/13/20 07:35 Dose: 1 cap Documented by: Non-Formulary Medication (Cannabidiol (Cbd) Extract [Cbd Oil]) 8 drop SL DAILY [facility] Non-Formulary Medication (Melatonin [Melatonin]) 3 mg PO BEDTIME [facility] Ondansetron HCl (Ondansetron 4 Mg/2 Ml Sdv) 4 mg IVPUSH STAT STA Stop: 08/12/20 08:38 Last Admin: 08/12/20 08:53 Dose: 4 mg Documented by: - Exam General: Reports: Alert, Oriented, Cooperative, No Acute Distress Neck: Reports: Supple Lungs: Reports: Clear to Auscultation, Normal Respiratory Effort Cardiovascular: Reports: Regular Rate, Regular Rhythm GI/Abdominal Exam: Normal Bowel Sounds, Soft, Non-Tender, No Distention Extremities: Normal Inspection, No Pedal Edema Skin: Reports: Warm, Dry, Intact Psy/Mental Status: Reports: Alert, Normal Affect, Normal Mood
[2020-08-14] MEDS ORDERED: Heparin Sodium 5,000 Units/ML Vial IVPUSH ONE (13:00)
== END 2020-08-14 13:28 | disposition home or self-care (01) ==
LOC: CC.ED 08:20 → CC.MS 13:10 → UNDOADMOB 13:10 → CC.MS 14:23
PROVIDERS: ADMIT Nurse Practitioner; ATTEND Family Medicine
DX: R53.1 Weakness (principal); N39.0 Urinary tract infection, site not specified; B37.9 Candidiasis, unspecified; E87.6 Hypokalemia; C78.00 Secondary malignant neoplasm of unspecified lung; F17.210 Nicotine dependence, cigarettes, uncomplicated; R29.6 Repeated falls; Z79.82 Long term (current) use of aspirin; Z79.899 Other long term (current) drug therapy; Z85.038 Personal history of other malignant neoplasm of large intestine; Z88.2 Allergy status to sulfonamides; Z98.890 Other specified postprocedural states
CPT/HCPCS: 36415; 70450; 71045; 80048; 80053; 81001; 82550; 83605; 83615; 84484; 85025; 85610; 87040; 87070; 87086; 93005; 93010; 96365; 96366; 96372; 96374; 96375; 99217; 99220; 99225; 99285-25; A9270-GY; G0378; J1642; J1650; J1956; J2270; J2405; J7030; J7040

== ENCOUNTER 2021-03-17 15:25 | Emergency (ER) | payer MEDICARE, BC ==
[2021-03-17 15:38] VITALS: BP 147/72; PULSE 87
[2021-03-17] MEDS ORDERED: Sodium Chloride 0.9% 1,000 ML IV SCH (16:45)
[2021-03-17 16:48] LABS: CHLORIDE,CL 104 mEq/L (98-106); SODIUM,NA 144 mEq/L (136-145)
--- NOTE | 2021-03-17 16:51 | EDM.PDOC ---
ED HPI GENERAL MEDICAL PROBLEM - General Chief Complaint: General Stated Complaint: L side pain, no BM 3 days Time Seen by Provider: 03/17/21 15:50 Source of Information: Reports: Patient History Limitations: Reports: No Limitations - History of Present Illness INITIAL COMMENTS - FREE TEXT/NARRATIVE: Lindsay is a 70 year old female who presents with anorexia, abdominal pain, weakn ess and constipation. History of metastatic colon cancer, most recently treated with radiation to her liver. Has been getting chemo every 2-3 weeks since 2016 for colon with mets to lung and now the newly noted lesion to her liver. Had radiation therapy 3 weeks ago, chemo was to be Thursday but she called and cancelled as she did not feel well. Denies fever. Is weak but admits "always feel that way and I sleep all the time". No chest discomfort or cough. No change in breathing pattern. No urinary complaints. Onset: Gradual Duration: Day(s):, Getting Worse Location: Reports: Abdomen Quality: Reports: Ache Severity: Moderate Improves with: Reports: None Associated Symptoms: Reports: Loss of Appetite. Denies: Confusion, Chest Pain, Cough, Fever/Chills, Nausea/Vomiting, Shortness of Breath Abdomen Pain Score (Numeric/FACES): 7 - Related Data Allergies Allergy/AdvReac Type Severity Reaction Status Date / Time Sulfa (Sulfonamide Allergy Rash Verified 03/17/21 15:26 Antibiotics) Home Meds: Home Meds Cholecalciferol (Vitamin D3) [Vitamin D3] 5,000 unit PO DAILY 06/13/16 [History] Aspirin [Children's Aspirin] 81 mg PO DAILY 11/28/17 [History] Omeprazole Magnesium [Prilosec Otc] 20 mg PO DAILY PRN 11/28/17 [History] Acetaminophen [Tylenol Extra Strength] 1,000 mg PO QID PRN 08/08/20 [History] Amylase/Lipase/Protease [Creon DR 24,000 Unit] 1 - 2 cap PO TID 08/08/20 [History] Calcium Carbonate/Vitamin D3 [Calcium 500-Vit D3 600 Caplet] 1 tab PO DAILY 08/08/20 [History] Cannabidiol (Cbd) Extract [CBD Oil] 8 drop SL DAILY 08/08/20 [History] Gabapentin [Neurontin] 100 mg PO TID 08/08/20 [History] Magnesium Oxide [Mag-Oxide] 800 mg PO DAILY 08/08/20 [History] Megestrol [Megace 40 MG/ML Susp] 10 ml PO DAILY PRN 08/08/20 [History] Melatonin 3 mg PO BEDTIME 08/08/20 [History] Ondansetron [Zofran Odt] 8 mg PO Q6H PRN 08/08/20 [History] Policos/Inositol Niac/Garlic [Adyfqgfaakp-Wangcf-Duxugx] 1 tab PO DAILY 08/08/20 [History] Promethazine [Phenergan] 25 mg TOP ASDIRECTED 08/08/20 [History] Venlafaxine HCl [Venlafaxine ER] 150 mg PO DAILY 08/08/20 [History] Venlafaxine [Effexor XR] 75 mg PO DAILY 08/08/20 [History] polyethylene glycoL 3350 [MiraLAX] 17 gm PO DAILY 08/08/20 [History] lisinopriL [Prinivil] 10 mg PO DAILY #30 tablet 08/09/20 [Rx] Minocycline HCl 100 mg PO DAILY 08/12/20 [History] Oxybutynin 10 mg PO DAILY 08/12/20 [History] oxyCODONE 5 mg PO Q6H PRN 08/12/20 [History] Cefuroxime [Ceftin] 250 mg PO BID #14 tab 08/14/20 [Rx] Nystatin [Mycostatin] 5 ml PO QID 8 Days #180 ml 08/14/20 [Rx] Past Medical History HEENT History: Reports: Impaired Vision Other HEENT History: wears glasses Respiratory History: Reports: Other (See Below) Other Respiratory History: colon CA mets to lung Gastrointestinal History: Reports: Other (See Below) Other Gastrointestinal History: COLON CA. 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 (See Below) Other CYTOGENETIC TECHNOLOGIST History: vulvectomy 11/09/15 Psychiatric History: Reports: Depression Oncologic (Cancer) History: Reports: Colon, Lung, Other (See Below) Other Oncologic History: CA OF VULVA - Past Surgical History GI Surgical History: Reports: Appendectomy, Colonoscopy Social & Family History - Family History Family Medical History: No Pertinent Family History - Tobacco Use Tobacco Use Status *Q: Current Every Day Tobacco User - Caffeine Use Caffeine Use: Reports: Coffee ED ROS GENERAL - Review of Systems Review Of Systems: See Below Constitutional: Reports: Malaise, Weakness, Fatigue, Decreased Appetite. Denies: Fever, Chills HEENT: Denies: Ear Pain, Rhinitis, Sinus Problem, Throat Pain Respiratory: Denies: Shortness of Breath, Cough Cardiovascular: Denies: Chest Pain, Edema, Lightheadedness Endocrine: Reports: Fatigue GI/Abdominal: Reports: Abdominal Pain, Constipation. Denies: Nausea, Vomiting : Reports: No Symptoms Musculoskeletal: Reports: No Symptoms Skin: Reports: No Symptoms Neurological: Reports: No Symptoms Psychiatric: Reports: No Symptoms ED EXAM, GENERAL - Physical Exam Exam: See Below Exam Limited By: No Limitations General Appearance: Alert, WD/WN, No Apparent Distress Ears: Normal External Exam, Normal TMs Nose: Normal Inspection, Normal Mucosa, No Blood Throat/Mouth: Normal Inspection, Normal Oropharynx Head: Normocephalic Neck: Normal Inspection, Supple, Non-Tender Respiratory/Chest: No Respiratory Distress, Lungs Clear, Decreased Breath Sounds Cardiovascular: Regular Rate, Rhythm GI/Abdominal: Soft, Tender, Abnormal Bowel Sounds Extremities: Normal Inspection, No Pedal Edema Neurological: Alert, Oriented Skin Exam: Warm, Dry Course - Vital Signs Last Recorded V/S: Last Vital Signs Temp 97.3 F 03/17/21 15:31 Pulse 87 03/17/21 15:31 Resp 18 03/17/21 15:31 BP 147/72 H 03/17/21 15:31 Pulse Ox 100 03/17/21 15:31 - Orders/Labs/Meds Orders: Active Orders 24 hr Category Date Time Status Abdomen 2V AP Flat Upright [CR] Stat Exams 03/17/21 16:18 Taken NS + KCl 20mEq/L [Normal Saline with 20 mEq KCl] 1,000 Med 03/17/21 17:00 Active ml IV ASDIRECTED Medication Orders Potassium Chloride/Sodium Chloride (Normal Saline With 20 Meq Kcl) 1,000 mls @ 250 mls/hr IV ASDIRECTED MARIBEL Last Admin: 03/17/21 17:15 Dose: 250 mls/hr Documented by: LAKESHA Labs: Laboratory Tests 03/17/21 03/17/21 03/17/21 Range/Units 16:25 16:25 17:28 WBC 10.6 (4.0-11.0) 10^3/uL RBC 4.23 (4.00-5.50) x10^6/uL Hgb 13.8 (12.0-16.0) g/dL Hct 40.5 (37.0-47.0) % MCV 95.7 (83.0-97.0) fL MCH 32.6 H (27.0-32.0) pg MCHC 34.1 (32.0-36.0) g/dL RDW Coeff of Kortney 14.9 (11.0-15.0) % Plt Count 300 (150-400) 10^3/uL Immature Gran % (Auto) 0.1 (0.0-4.9) % Neut % (Auto) 81.4 H (41-71) % Lymph % (Auto) 10.3 L (24-44) % [place] % (Auto) 7.6 (0-10) % Eos % (Auto) 0.2 (0-6) % Baso % (Auto) 0.4 (0-1) % Neut # (Auto) 8.62 H (1.80-8.00) x10^3/uL Lymph # (Auto) 1.09 (0.60-5.00) 10^3/uL [place] # (Auto) 0.80 (0.00-1.50) 10^3/uL Eos # (Auto) 0.02 (0.00-1.50) 10^3/uL Baso # (Auto) 0.04 (0.00-0.50) 10^3/uL Immature Gran # (Auto) 0.01 (0.00-0.49) 10^3/uL Sodium 144 (136-145) mEq/L Potassium 3.2 L D (3.5-5.0) mEq/L Chloride 104 (98-106) mEq/L Carbon Dioxide 27 (21-32) mmol/L BUN 13 D (7-18) mg/dL Creatinine 0.8 (0.6-1.0) mg/dL Est Cr Clr Drug Dosing 50.07 mL/min Estimated GFR (MDRD) > 60 (>=60) mL/min Glucose 134 H (75-99) mg/dL Calcium 9.1 (8.4-10.1) mg/dL Total Bilirubin 0.5 (0.0-1.0) mg/dL AST 37 (15-37) U/L ALT 35 (12-78) U/L Alkaline Phosphatase 165 H (46-116) U/L C-Reactive Protein < 0.2 L (0.2-0.8) mg/dL Total Protein 6.7 (6.4-8.2) g/dL Albumin 3.4 (3.4-5.0) g/dL Urine Color Yellow (YELLOW) Urine Appearance Clear (CLEAR) Urine pH 6.0 (4.5-8.0) Ur Specific [place] >= 1.030 H (1.003-1.020) Urine Protein 100 H (NEGATIVE) mg/dL Urine Glucose (UA) Negative (NEGATIVE) mg/dL Urine Ketones 40 H (NEGATIVE) mg/dL Urine Occult Blood Moderate H (NEGATIVE) Urine Nitrite Negative (NEGATIVE) Urine Bilirubin Negative (NEGATIVE) Urine Urobilinogen 0.2 (0.2-1.0) EU/dL Ur Leukocyte Esterase Negative (NEGATIVE) Urine RBC 10-20 H (0-5) /HPF Urine WBC 0-5 (0-5) /HPF Ur Epithelial Cells Few H (NOT SEEN) /HPF Urinalysis Comment Meds: Medications Generic Name Dose Route Start Last Admin Trade Name Freq PRN Reason Stop Dose Admin Potassium Chloride/Sodium Chloride 1,000 mls @ 250 mls/hr 03/17/21 17:00 03/17/21 17:15 Normal Saline With 20 Meq Kcl IV 250 mls/hr ASDIRECTED MARIBEL Administration Discontinued Medications Generic Name Dose Route Start Last Admin Trade Name Freq PRN Reason Stop Dose Admin Sodium Chloride 1,000 mls @ 250 mls/hr 03/17/21 16:45 Normal Saline IV ASDIRECTED MARIBEL - Re-Assessments/Exams Free Text/Narrative Re-Assessment/Exam: 03/17/21 18:39 Lab results are essentially unremarkable. Potassium is low at 3.2 so IV fluids with NS and KCL were started. Does have moderate amount of stool in rectal area with gas dilation. No obstruction noted. Will discharge home after fluids infused. Departure - Departure Time of Disposition: 18:40 Disposition: Home, Self-Care 01 Condition: Fair Clinical Impression: Dehydration, General weakness - Discharge Information *PRESCRIPTION DRUG MONITORING PROGRAM REVIEWED*: No *COPY OF PRESCRIPTION DRUG MONITORING REPORT IN PATIENT JOSE: No Instructions: Dehydration, Adult, [id number], Weakness, [id number] Forms: ED Department Discharge Additional Instructions: 1. Rest 2. Push fluids 3. Usual meds as ordered 4. Follow up with PCP/oncology if persisting concerns. Sepsis Event Note (ED) - Evaluation Sepsis Screening Result: No Definite Risk - Focused Exam Vital Signs: Vital Signs Temp Pulse Resp BP Pulse Ox 03/17/21 15:31 97.3 F 87 18 147/72 H 100 - My Orders Last 24 Hours: My Active Orders 03/17/21 16:18 Abdomen 2V AP Flat Upright [CR] Stat 03/17/21 17:00 NS + KCl 20mEq/L [Normal Saline with 20 mEq KCl] 1,000 ml IV ASDIRECTED - Assessment/Plan Last 24 Hours: My Active Orders 03/17/21 16:18 Abdomen 2V AP Flat Upright [CR] Stat 03/17/21 17:00 NS + KCl 20mEq/L [Normal Saline with 20 mEq KCl] 1,000 ml IV ASDIRECTED
[2021-03-17] MEDS ORDERED: NS + KCl 20mEq/L 1,000 ML IV SCH (17:00)
== END 2021-03-17 21:50 | disposition home or self-care (01) ==
LOC: CC.ED 15:25
DX: R53.1 Weakness (principal); E86.0 Dehydration; Z88.2 Allergy status to sulfonamides; Z79.82 Long term (current) use of aspirin; Z79.899 Other long term (current) drug therapy; Z72.0 Tobacco use
CPT/HCPCS: 36415; 74019; 80053; 81001; 85025; 86140; 96365; 96366; 99284; 99285; J1642; J3480

== ENCOUNTER 2021-03-21 09:56 | Inpatient (IN) | payer MEDICARE, BC ==
--- NOTE | 2021-03-21 10:16 | EDM.PDOC ---
ED HPI GENERAL MEDICAL PROBLEM - General Chief Complaint: General Stated Complaint: Weakness Time Seen by Provider: 03/21/21 10:05 Source of Information: Reports: Patient, RN History Limitations: Reports: No Limitations - History of Present Illness INITIAL COMMENTS - FREE TEXT/NARRATIVE: Pt presented with weakness, lightheadedness and nausea. She states that she had a radiation treatment for a spot on her liver "2 or 3 Fridays" ago and hasn't felt well since. Feels weak and hasn't been able to eat much since then. She is known colon cancer with mets and also history of vulvar cancer. Onset: Gradual Location: Reports: Generalized - Related Data Allergies Allergy/AdvReac Type Severity Reaction Status Date / Time Sulfa (Sulfonamide Allergy Rash Verified 03/21/21 10:01 Antibiotics) Home Meds: Home Meds Cholecalciferol (Vitamin D3) [Vitamin D3] 5,000 unit PO DAILY 06/13/16 [History] Aspirin [Children's Aspirin] 81 mg PO DAILY 11/28/17 [History] Omeprazole Magnesium [Prilosec Otc] 20 mg PO DAILY PRN 11/28/17 [History] Acetaminophen [Tylenol Extra Strength] 1,000 mg PO QID PRN 08/08/20 [History] Amylase/Lipase/Protease [Creon DR 24,000 Unit] 1 - 2 cap PO TIDAC 08/08/20 [History] Calcium Carbonate/Vitamin D3 [Calcium 500-Vit D3 600 Caplet] 1 tab PO DAILY 08/08/20 [History] Cannabidiol (Cbd) Extract [CBD Oil] 8 drop SL DAILY 08/08/20 [History] Gabapentin [Neurontin] 100 mg PO TID 08/08/20 [History] Magnesium Oxide [Mag-Oxide] 800 mg PO DAILY 08/08/20 [History] Megestrol [Megace 40 MG/ML Susp] 10 ml PO DAILY PRN 08/08/20 [History] Melatonin 3 mg PO BEDTIME 08/08/20 [History] Ondansetron [Zofran Odt] 8 mg PO Q6H PRN 08/08/20 [History] Policos/Inositol Niac/Garlic [Etaitcgtvor-Mmjmci-Jtrscn] 1 tab PO DAILY 08/08/20 [History] Promethazine [Phenergan] 25 mg TOP ASDIRECTED 08/08/20 [History] Venlafaxine HCl [Venlafaxine ER] 150 mg PO DAILY 08/08/20 [History] polyethylene glycoL 3350 [MiraLAX] 17 gm PO DAILY 08/08/20 [History] lisinopriL [Prinivil] 10 mg PO DAILY #30 tablet 08/09/20 [Rx] Minocycline HCl 100 mg PO BIDAC 08/12/20 [History] oxyCODONE 5 mg PO Q6H PRN 08/12/20 [History] Oxybutynin [Oxybutynin ER] 10 mg PO DAILY 03/21/21 [History] Past Medical History HEENT History: Reports: Impaired Vision Other HEENT History: wears glasses Respiratory History: Reports: Other (See Below) Other Respiratory History: colon CA mets to lung Gastrointestinal History: Reports: Other (See Below) Other Gastrointestinal History: COLON CA. 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 Psychiatric History: Reports: Depression Oncologic (Cancer) History: Reports: Colon, Liver, Lung, Other (See Below) Other Oncologic History: CA OF VULVA - Past Surgical History GI Surgical History: Reports: Appendectomy, Colonoscopy Social & Family History - Family History Family Medical History: No Pertinent Family History - Tobacco Use Tobacco Use Status *Q: Current Every Day Tobacco User Years of Tobacco use: 30 Packs/Tins Daily: 1 - Caffeine Use Caffeine Use: Reports: None - Recreational Drug Use Recreational Drug Use: No ED ROS GENERAL - Review of Systems Review Of Systems: See Below Constitutional: Reports: Fever, Weakness, Fatigue HEENT: Reports: No Symptoms Respiratory: Reports: No Symptoms Cardiovascular: Reports: No Symptoms GI/Abdominal: Reports: Anorexia, Diarrhea, Nausea : Reports: No Symptoms Neurological: Reports: Syncope, Difficulty Walking, Weakness. Denies: Confusion ED EXAM, GENERAL - Physical Exam Exam: See Below Exam Limited By: No Limitations General Appearance: Alert, WD/WN, Thin, Cachetic Ears: Normal External Exam, Normal TMs Throat/Mouth: Normal Inspection, Normal Oropharynx Head: Atraumatic, Normocephalic Neck: Normal Inspection, Supple, Non-Tender Respiratory/Chest: No Respiratory Distress, Lungs Clear. No: Wheezing Cardiovascular: Regular Rate, Rhythm GI/Abdominal: Normal Bowel Sounds, Soft, Tender. No: Guarding, Rigid, Rebound Extremities: No Pedal Edema Neurological: Alert, Oriented Skin Exam: Warm, Dry Course - Vital Signs Last Recorded V/S: Last Vital Signs Temp 97.2 F 03/21/21 16:00 Pulse 77 03/21/21 16:00 Resp 14 03/21/21 16:00 BP 168/87 H 03/21/21 16:00 Pulse Ox 96 03/21/21 16:00 - Orders/Labs/Meds Orders: Active Orders 24 hr Category Date Time Status Chest 1V Frontal [CR] Stat Exams 03/21/21 09:57 Taken Sodium Chloride 0.9% [Normal Saline] 1,000 ml Med 03/21/21 10:00 Active IV ASDIRECTED Medication Orders Acetaminophen (Acetaminophen 325 Mg Tab) 650 mg PO Q4H PRN PRN Reason: Pain (Mild 1-3)/fever Aspirin (Aspirin 81 Mg Tab.Chew) 81 mg PO DAILY [facility] Enoxaparin Sodium (Enoxaparin 40 Mg/0.4 Ml Syringe) 40 mg SUBCUT Q24H [facility] Gabapentin (Gabapentin 100 Mg Cap) 100 mg PO TID [facility] Last Admin: 03/21/21 19:49 Dose: 100 mg Documented by: Admin: 03/21/21 13:59 Dose: 100 mg Documented by: MACKRIC Sodium Chloride (Normal Saline) 1,000 mls @ 100 mls/hr IV ASDIRECTED [facility] Last Admin: 03/21/21 10:39 Dose: 100 mls/hr Documented by: MACKRIC Sodium Chloride (Normal Saline) 1,000 mls @ 100 mls/hr IV ASDIRECTED [facility] Lisinopril (Lisinopril 10 Mg Tab) 10 mg PO DAILY [facility] Magnesium Oxide (Magnesium Oxide 250 Mg Tab) 750 mg PO DAILY@1200 [facility] Melatonin (Melatonin 3 Mg Tab) 3 mg PO BEDTIME [facility] Last Admin: 03/21/21 19:52 Dose: 3 mg Documented by: GRACIELA Minocycline HCl (Minocycline 100 Mg Cap) 100 mg PO BIDAC [facility] Last Admin: 03/21/21 17:38 Dose: 100 mg Documented by: ONI Non-Formulary Medication (Amylase/Lipase/Protease) 1 - 2 cap PO TID [facility] Non-Formulary Medication (Megestrol [Megace 40 Mg/Ml Susp]) 10 ml PO DAILY PRN PRN Reason: Other Nystatin (Nystatin Susp 100,000 Unit/Ml 5 Ml Ud Cup) 5 ml PO QID [facility] Last Admin: 03/21/21 19:49 Dose: 5 ml Documented by: Admin: 03/21/21 17:38 Dose: Not Given Documented by: ONI Ondansetron HCl (Ondansetron 4 Mg Tab.Dis) 8 mg PO Q6H PRN PRN Reason: Nausea Oxybutynin Chloride (Oxybutynin 5 Mg Tab.Er) 10 mg PO DAILY [facility] Oxycodone HCl (Oxycodone 5 Mg Tab) 5 mg PO Q6H PRN PRN Reason: Pain Last Admin: 03/21/21 13:59 Dose: 5 mg Documented by: ONI Pantoprazole Sodium (Pantoprazole 40 Mg Vial) 40 mg IVPUSH Q12H [facility] Last Admin: 03/21/21 19:52 Dose: 40 mg Documented by: GRACIELA Polyethylene Glycol (Polyethylene Glycol 3350 Powder 17 Gm Packet) 17 gm PO DAILY [facility] Sodium Chloride (Sodium Chloride 0.9% 10 Ml Syringe) 10 ml FLUSH ASDIRECTED PRN PRN Reason: Keep Vein Open Venlafaxine HCl (Venlafaxine 75 Mg Cap.Er) 150 mg PO DAILY [facility] Labs: Laboratory Tests 03/21/21 03/21/21 03/21/21 Range/Units 09:57 09:57 10:00 WBC 9.0 (4.0-11.0) 10^3/uL RBC 4.34 (4.00-5.50) x10^6/uL Hgb 14.1 (12.0-16.0) g/dL Hct 40.8 (37.0-47.0) % MCV 94.0 (83.0-97.0) fL MCH 32.5 H (27.0-32.0) pg MCHC 34.6 (32.0-36.0) g/dL RDW Coeff of Kortney 14.9 (11.0-15.0) % Plt Count 265 (150-400) 10^3/uL Immature Gran % (Auto) 0.1 (0.0-4.9) % Neut % (Auto) 72.8 H (41-71) % Lymph % (Auto) 15.0 L (24-44) % [place] % (Auto) 11.4 H (0-10) % Eos % (Auto) 0.3 (0-6) % Baso % (Auto) 0.4 (0-1) % Neut # (Auto) 6.55 (1.80-8.00) x10^3/uL Lymph # (Auto) 1.35 (0.60-5.00) 10^3/uL [place] # (Auto) 1.03 (0.00-1.50) 10^3/uL Eos # (Auto) 0.03 (0.00-1.50) 10^3/uL Baso # (Auto) 0.04 (0.00-0.50) 10^3/uL Immature Gran # (Auto) 0.01 (0.00-0.49) 10^3/uL Sodium 139 (136-145) mEq/L Potassium 2.7 L* (3.5-5.0) mEq/L Chloride 99 (98-106) mEq/L Carbon Dioxide 29 (21-32) mmol/L BUN 23 H D (7-18) mg/dL Creatinine 0.8 (0.6-1.0) mg/dL Est Cr Clr Drug Dosing 50.07 mL/min Estimated GFR (MDRD) > 60 (>=60) mL/min Glucose 150 H (75-99) mg/dL Lactic Acid 1.3 (0.4-2.0) mmol/L Calcium 9.5 (8.4-10.1) mg/dL Magnesium 1.9 (1.8-2.4) mg/dL Total Bilirubin 0.6 (0.0-1.0) mg/dL AST 35 (15-37) U/L ALT 36 (12-78) U/L Alkaline Phosphatase 167 H (46-116) U/L Troponin I High Sens 69.0 H* (<=51) pg/mL C-Reactive Protein 2.6 H (0.2-0.8) mg/dL Total Protein 7.0 (6.4-8.2) g/dL Albumin 3.4 (3.4-5.0) g/dL Meds: Medications Generic Name Dose Route Start Last Admin Trade Name Freq PRN Reason Stop Dose Admin Acetaminophen 650 mg 03/21/21 12:21 Acetaminophen 325 Mg Tab PO Q4H PRN Pain (Mild 1-3)/fever Aspirin 81 mg 03/22/21 08:00 Aspirin 81 Mg Tab.Chew PO DAILY [facility] Enoxaparin Sodium 40 mg 03/22/21 08:00 Enoxaparin 40 Mg/0.4 Ml Syringe SUBCUT Q24H [facility] Gabapentin 100 mg 03/21/21 14:00 03/21/21 19:49 Gabapentin 100 Mg Cap PO 100 mg TID MARIBEL Administration Sodium Chloride 1,000 mls @ 100 mls/hr 03/21/21 10:00 03/21/21 10:39 Normal Saline IV 100 mls/hr ASDIRECTED [facility] Administration Sodium Chloride 1,000 mls @ 100 mls/hr 03/21/21 13:15 Normal Saline IV ASDIRECTED [facility] Lisinopril 10 mg 03/22/21 08:00 Lisinopril 10 Mg Tab PO DAILY [facility] Magnesium Oxide 750 mg 03/22/21 12:00 Magnesium Oxide 250 Mg Tab PO DAILY@1200 [facility] Melatonin 3 mg 03/21/21 20:00 03/21/21 19:52 Melatonin 3 Mg Tab PO 3 mg BEDTIME [facility] Administration Minocycline HCl 100 mg 03/21/21 17:00 03/21/21 17:38 Minocycline 100 Mg Cap PO 100 mg BIDAC [facility] Administration Non-Formulary Medication 1 - 2 cap 03/21/21 14:00 Amylase/Lipase/Protease PO TID [facility] Non-Formulary Medication 10 ml 03/21/21 12:26 Megestrol [Megace 40 Mg/Ml Susp] PO DAILY PRN Other Nystatin 5 ml 03/21/21 16:00 03/21/21 19:49 Nystatin Susp 100,000 Unit/Ml 5 Ml Ud Cup PO 5 ml QID [facility] Administration Ondansetron HCl 8 mg 03/21/21 13:11 Ondansetron 4 Mg Tab.Dis PO Q6H PRN Nausea Oxybutynin Chloride 10 mg 03/22/21 08:00 Oxybutynin 5 Mg Tab.Er PO DAILY [facility] Oxycodone HCl 5 mg 03/21/21 12:26 03/21/21 13:59 Oxycodone 5 Mg Tab PO 5 mg Q6H PRN Administration Pain Pantoprazole Sodium 40 mg 03/21/21 20:00 03/21/21 19:52 Pantoprazole 40 Mg Vial IVPUSH 40 mg Q12H MARIBEL Administration Polyethylene Glycol 17 gm 03/22/21 08:00 Polyethylene Glycol 3350 Powder 17 Gm Packet PO DAILY [facility] Sodium Chloride 10 ml 03/21/21 12:21 Sodium Chloride 0.9% 10 Ml Syringe FLUSH ASDIRECTED PRN Keep Vein Open Venlafaxine HCl 150 mg 03/22/21 08:00 Venlafaxine 75 Mg Cap.Er PO DAILY [facility] Discontinued Medications Generic Name Dose Route Start Last Admin Trade Name Freq PRN Reason Stop Dose Admin Potassium Chloride 20 meq/ 100 mls @ 50 mls/hr 03/21/21 10:32 03/21/21 10:39 Premix IV 03/21/21 12:31 50 mls/hr ONETIME ONE Administration Potassium Chloride 20 meq/ 100 mls @ 50 mls/hr 03/21/21 10:33 03/21/21 14:04 Premix IV 03/21/21 12:32 50 mls/hr ONETIME ONE Administration - Re-Assessments/Exams Free Text/Narrative Re-Assessment/Exam: 03/21/21 11:31 Discussed with pt that her K+ is quite low and that could be cause of her weakness. Will give IV infusion and admit with follow up labs in the AM. Will give some IV infusion to rehydrate. Treat her nausea as needed. Dr. Ramirez is aware of admission. Departure - Departure Time of Disposition: 11:30 Disposition: Admitted As Inpatient 64 Clinical Impression: Hypokalemia, Weakness, Failure to thrive in adult - Discharge Information *PRESCRIPTION DRUG MONITORING PROGRAM REVIEWED*: Not Applicable *COPY OF PRESCRIPTION DRUG MONITORING REPORT IN PATIENT JOSE: Not Applicable Sepsis Event Note (ED) - Evaluation Sepsis Screening Result: No Definite Risk - Focused Exam Vital Signs: Vital Signs Temp Pulse Resp BP Pulse Ox 03/21/21 11:31 97.1 F 91 14 149/75 H 99 03/21/21 10:41 88 14 155/91 H 99 03/21/21 09:58 97.8 F 90 14 177/93 H 100 - Problem List & Annotations (1) Hypokalemia SNOMED Code(s): 54115473 Code(s): E87.6 - HYPOKALEMIA Status: Acute Priority: High Current Visit: No - Problem List Review Problem List Initiated/Reviewed/Updated: Yes - My Orders Last 24 Hours: My Active Orders 03/21/21 09:57 Chest 1V Frontal [CR] Stat 03/21/21 10:00 Sodium Chloride 0.9% [Normal Saline] 1,000 ml IV ASDIRECTED - Assessment/Plan Admission H&P: Please use this note as an admission H&P Last 24 Hours: My Active Orders 03/21/21 09:57 Chest 1V Frontal [CR] Stat 03/21/21 10:00 Sodium Chloride 0.9% [Normal Saline] 1,000 ml IV ASDIRECTED
[2021-03-21 10:26] LABS: CHLORIDE,CL 99 mEq/L (98-106); SODIUM,NA 139 mEq/L (136-145)
[2021-03-21] MEDS ORDERED: Potassium Chloride 20 MEQ in Premix Bag 1 BAG IV ONE ×2 (10:32→10:33)
[2021-03-21] MEDS: Sodium Chloride 0.9% 1,000 ML IV SCH (10:39)
[2021-03-21] MEDS ORDERED: Acetaminophen 325 MG Tab PO PRN (12:21)
[2021-03-21] MEDS ORDERED: Sodium Chloride 0.9% 10 ML Syringe FLUSH PRN (12:21)
[2021-03-21] MEDS ORDERED: MEGESTROL PO PRN (12:26)
[2021-03-21] MEDS ORDERED: Ondansetron 4 MG Tab.DIS PO PRN (13:11)
[2021-03-21] MEDS ORDERED: Sodium Chloride 0.9% 1,000 ML IV SCH (13:15)
[2021-03-21] MEDS: Gabapentin 100 MG Cap PO SCH ×2 (13:59→19:49)
[2021-03-21] MEDS: oxyCODONE 5 MG Tab PO PRN (13:59)
[2021-03-21] MEDS ORDERED: Non-Formulary Medication 1 Each (Amylase/Lipase/Protease 1 CAP Cap.Cr) PO SCH (14:00)
[2021-03-21] MEDS: Nystatin Susp 100,000 Unit/ML 5 ML UD Cup PO SCH ×2 (17:38→19:49)
[2021-03-21] MEDS: Pantoprazole 40 MG Vial IVPUSH SCH (19:52)
[2021-03-21] MEDS: Melatonin 3 MG Tab PO SCH (19:52)
[2021-03-22] MEDS: Sodium Chloride 0.9% 1,000 ML IV SCH (00:13)
[2021-03-22 07:18] LABS: CHLORIDE,CL 107 mEq/L (98-106); SODIUM,NA 142 mEq/L (136-145)
[2021-03-22] MEDS: Gabapentin 100 MG Cap PO SCH ×3 (07:51→19:44)
[2021-03-22] MEDS: Oxybutynin 5 MG Tab.ER PO SCH (07:51)
[2021-03-22] MEDS: Nystatin Susp 100,000 Unit/ML 5 ML UD Cup PO SCH ×2 (07:51→11:20)
[2021-03-22] MEDS: Venlafaxine 75 MG Cap.ER PO SCH (07:51)
[2021-03-22] MEDS: Lisinopril 10 MG Tab PO SCH (07:51)
[2021-03-22] MEDS: Pantoprazole 40 MG Vial IVPUSH SCH ×2 (07:51→19:44)
[2021-03-22] MEDS: Enoxaparin 40 MG/0.4 ML Syringe SUBCUT SCH (07:51)
[2021-03-22] MEDS ORDERED: Aspirin 81 MG Tab.Chew PO SCH (08:00)
[2021-03-22] MEDS ORDERED: Polyethylene Glycol 3350 Powder 17 GM Packet PO SCH (08:00)
[2021-03-22] MEDS ORDERED: Venlafaxine 75 MG Cap.ER PO SCH (08:00)
[2021-03-22] MEDS: CREON 24000 UNIT PO SCH ×3 (08:25→17:30)
[2021-03-22] MEDS: oxyCODONE 5 MG Tab PO PRN (08:25)
[2021-03-22] MEDS: MEGESTROL 40 MG/ML PO SCH (08:25)
[2021-03-22] MEDS ORDERED: Potassium Chloride Riders 40 MEQ in Premix Bag 1 BAG IV ONE (11:15)
[2021-03-22] MEDS: Potassium Chloride 10 MEQ Tab.ER PO SCH (11:20)
--- NOTE | 2021-03-22 13:24 | PN ---
DATE: 03/22/2021 S: Mrs. Reeves was admitted by [facility] yesterday for weakness. She was found to have hypokalemia at 2.7 with a normal magnesium level. Rest of her electrolytes were normal. No obvious abnormality on chest x-ray. [place] she was very good candidate for admission for IV replacement. She has had a total of 40 mEq of KCl through her IV and her potassium came up from 2.7 to 3.1. Clinically, the patient feels a little bit better. She has been up and able to go to the bathroom on her own. She does suffer from multiple malignancies and metastatic colon CA. Unfortunately, we do not have a urinalysis on the chart yet. Since admission, she has been afebrile. Blood pressures are a little elevated. She is satting in the mid-to-high 90s. O: GENERAL: The patient is cachectic and fatigued in appearance. HEENT: Grossly benign. NECK: Supple. LUNGS: Lung sounds appear clear to both bases. CARDIAC: Tones are regular. ABDOMEN: Flat and soft. She has active bowel sounds in all 4 quadrants. No gross tenderness. Certainly, no guarding, rebound, or rigidity. EXTREMITIES: She has no peripheral edema. ASSESSMENT: 1. HYPOKALEMIA. 2. WEAKNESS. 3. METASTATIC COLON CA. P: We will give her another 40 mEq bump of potassium today and start her on an oral tablet. She does not have any medications that should induce hypokalemia and she has not been having any vomiting or diarrhea. This will certainly be followed closely as an outpatient if she should go home tomorrow. We will try to get a urinalysis on her later today to rule out a UTI. ARIANA/CORTES /[id number]
[2021-03-22] MEDS ORDERED: Polyethylene Glycol 3350 Powder 17 GM Packet PO PRN (15:38)
[2021-03-22] MEDS: Melatonin 3 MG Tab PO SCH (19:44)
[2021-03-23 07:33] LABS: CHLORIDE,CL 109 mEq/L (98-106); SODIUM,NA 144 mEq/L (136-145)
[2021-03-23] MEDS: Gabapentin 100 MG Cap PO SCH ×3 (07:51→19:38)
[2021-03-23] MEDS: Oxybutynin 5 MG Tab.ER PO SCH (07:52)
[2021-03-23] MEDS: Lisinopril 10 MG Tab PO SCH (07:52)
[2021-03-23] MEDS: Venlafaxine 75 MG Cap.ER PO SCH (07:52)
[2021-03-23] MEDS: Potassium Chloride 10 MEQ Tab.ER PO SCH (07:53)
[2021-03-23] MEDS: Aspirin 81 MG Tab.Chew PO SCH (07:53)
[2021-03-23] MEDS: Pantoprazole 40 MG Vial IVPUSH SCH ×2 (07:54→19:38)
[2021-03-23] MEDS: Enoxaparin 40 MG/0.4 ML Syringe SUBCUT SCH (07:54)
[2021-03-23] MEDS: CREON 24000 UNIT PO SCH ×3 (08:10→17:40)
[2021-03-23] MEDS: MEGESTROL 40 MG/ML PO SCH (08:11)
[2021-03-23] MEDS: cefTRIAXone 1 GM Vial IVPUSH SCH (15:10)
--- NOTE | 2021-03-23 15:13 | PCM.PN ---
- General Info Date of Service: 03/23/21 Admission Dx/Problem (Free Text): Hypokalemia History of liver/colon cancer with mets Weakness Subjective Update: Was feeling good this am, had no further lightheadedness or pain prior to lunch today. Was requesting to go home as "had felt better than she had in days". Low grade fevers. Appetite good. Continues to have persistent cough, nonproductive. Up to bathroom, tolerating ambulation well. Does admit that she is always tired and weak but has persisted through many months now of treatment. This afternoon, prior to getting ready for discharge, was up to bathroom and got very confused. Weak and lowered to the ground. After the event, settled back in to bed and feeling better. Has really no recall of this event. Functional Status: Reports: Pain Controlled, Tolerating Diet, Ambulating - Review of Systems General: Reports: Fever, Weakness, Fatigue, Malaise HEENT: Reports: Rhinitis. Denies: Ear Pain, Sinus Congestion, Sore Throat, Visual Changes Pulmonary: Reports: Shortness of Breath, Cough Cardiovascular: Reports: Lightheadedness. Denies: Chest Pain, Edema Gastrointestinal: Denies: Abdominal Pain, Diarrhea, Nausea, Vomiting Genitourinary: Reports: Other (flank pain) Musculoskeletal: Reports: Back Pain Skin: Reports: No Symptoms Neurological: Reports: Weakness - Patient Data Vitals - Most Recent: Last Vital Signs Temp 96.9 F 03/23/21 12:00 Pulse 75 03/23/21 12:00 Resp 16 03/23/21 12:00 BP 133/76 03/23/21 12:00 Pulse Ox 98 03/23/21 12:00 Weight - Most Recent: 106 lb 6.4 oz I&O - Last 24 Hours: Intake & Output 03/23/21 03/23/21 03/23/21 06:59 14:59 22:59 Intake Total 150 Output Total 200 Balance -50 Lab Results Last 24 Hours: Laboratory Results - last 24 hr 03/23/21 03/23/21 Range/Units 07:22 14:00 Sodium 144 (136-145) mEq/L Potassium 3.7 (3.5-5.0) mEq/L Chloride 109 H (98-106) mEq/L Carbon Dioxide 26 (21-32) mmol/L BUN 16 (7-18) mg/dL Creatinine 0.8 (0.6-1.0) mg/dL Est Cr Clr Drug Dosing 48.43 mL/min Estimated GFR (MDRD) > 60 (>=60) mL/min Glucose 107 H (75-99) mg/dL Calcium 8.8 (8.4-10.1) mg/dL Urine Color Yellow (YELLOW) Urine Appearance Slightly cloudy (CLEAR) Urine pH 5.5 (4.5-8.0) Ur Specific [place] 1.025 H (1.003-1.020) Urine Protein Negative (NEGATIVE) mg/dL Urine Glucose (UA) Negative (NEGATIVE) mg/dL Urine Ketones Negative (NEGATIVE) mg/dL Urine Occult Blood Trace-intact H (NEGATIVE) Urine Nitrite Negative (NEGATIVE) Urine Bilirubin Negative (NEGATIVE) Urine Urobilinogen 0.2 (0.2-1.0) EU/dL Ur Leukocyte Esterase Small H (NEGATIVE) Urine RBC 5-10 H (0-5) /HPF Urine WBC 50-75 H (0-5) /HPF Ur Squamous Epith Cells Moderate H (NOT SEEN) /HPF Urine Bacteria Few H (NOT SEEN) /HPF Med Orders - Current: Current Medications Acetaminophen (Acetaminophen 325 Mg Tab) 650 mg PO Q4H PRN PRN Reason: Pain (Mild 1-3)/fever Last Admin: 03/22/21 20:16 Dose: 650 mg Documented by: Aspirin (Aspirin 81 Mg Tab.Chew) 81 mg PO DAILY [facility] Last Admin: 03/23/21 07:53 Dose: 81 mg Documented by: Ceftriaxone Sodium (Ceftriaxone 1 Gm Vial) 1 gm IVPUSH Q24H [facility] Enoxaparin Sodium (Enoxaparin 40 Mg/0.4 Ml Syringe) 40 mg SUBCUT Q24H [facility] Last Admin: 03/23/21 07:54 Dose: 40 mg Documented by: Gabapentin (Gabapentin 100 Mg Cap) 100 mg PO TID [facility] Last Admin: 03/23/21 07:51 Dose: 100 mg Documented by: Heparin Sodium (Porcine) (Heparin Sodium 100 Units/Ml 5 Ml Syringe) 500 units FLUSH ASDIRECTED PRN PRN Reason: Other Last Admin: 03/22/21 20:16 Dose: 500 units Documented by: Sodium Chloride (Normal Saline) 1,000 mls @ 100 mls/hr IV ASDIRECTED [facility] Last Admin: 03/22/21 00:13 Dose: 100 mls/hr Documented by: Sodium Chloride (Normal Saline) 1,000 mls @ 100 mls/hr IV ASDIRECTED [facility] Lisinopril (Lisinopril 10 Mg Tab) 10 mg PO DAILY [facility] Last Admin: 03/23/21 07:52 Dose: 10 mg Documented by: Magnesium Oxide (Magnesium Oxide 250 Mg Tab) 750 mg PO DAILY@1200 [facility] Last Admin: 03/23/21 12:00 Dose: 750 mg Documented by: Melatonin (Melatonin 3 Mg Tab) 3 mg PO BEDTIME [facility] Last Admin: 03/22/21 19:44 Dose: 3 mg Documented by: Minocycline HCl (Minocycline 100 Mg Cap) 100 mg PO BIDAC [facility] Last Admin: 03/23/21 07:52 Dose: 100 mg Documented by: Creon (Pancrelipase) 24,000 Unit Capsule Ptom 0 cap PO TIDMEALS [facility] Last Admin: 03/23/21 12:00 Dose: 1 cap Documented by: Megesterol Acetate 40mg/Ml Susp 10 Ml * *Ptom 0 ml PO DAILY [facility] Last Admin: 03/23/21 08:11 Dose: 10 ml Documented by: Ondansetron HCl (Ondansetron 4 Mg Tab.Dis) 8 mg PO Q6H PRN PRN Reason: Nausea Oxybutynin Chloride (Oxybutynin 5 Mg Tab.Er) 10 mg PO DAILY [facility] Last Admin: 03/23/21 07:52 Dose: 10 mg Documented by: Oxycodone HCl (Oxycodone 5 Mg Tab) 5 mg PO Q6H PRN PRN Reason: Pain Last Admin: 03/22/21 08:25 Dose: 5 mg Documented by: Pantoprazole Sodium (Pantoprazole 40 Mg Vial) 40 mg IVPUSH Q12H [facility] Last Admin: 03/23/21 07:54 Dose: 40 mg Documented by: Polyethylene Glycol (Polyethylene Glycol 3350 Powder 17 Gm Packet) 17 gm PO DAILY PRN PRN Reason: constipation Potassium Chloride (Potassium Chloride 10 Meq Tab.Er) 20 meq PO DAILY [facility] Last Admin: 03/23/21 07:53 Dose: 20 meq Documented by: Sodium Chloride (Sodium Chloride 0.9% 10 Ml Syringe) 10 ml FLUSH ASDIRECTED PRN PRN Reason: Keep Vein Open Venlafaxine HCl (Venlafaxine 75 Mg Cap.Er) 150 mg PO DAILY [facility] Last Admin: 03/23/21 07:52 Dose: 150 mg Documented by: Discontinued Medications Aspirin (Aspirin 81 Mg Tab.Chew) 81 mg PO DAILY [facility] Last Admin: 03/22/21 07:51 Dose: 81 mg Documented by: Potassium Chloride 20 meq/ (Premix) 100 mls @ 50 mls/hr IV ONETIME ONE Stop: 03/21/21 12:31 Last Admin: 03/21/21 10:39 Dose: 50 mls/hr Documented by: Potassium Chloride 20 meq/ (Premix) 100 mls @ 50 mls/hr IV ONETIME ONE Stop: 03/21/21 12:32 Last Admin: 03/21/21 14:04 Dose: 50 mls/hr Documented by: Potassium Chloride 40 meq/ (Premix) 100 mls @ 25 mls/hr IV ONETIME ONE Stop: 03/22/21 15:14 Last Admin: 03/22/21 11:21 Dose: 25 mls/hr Documented by: Nystatin (Nystatin Susp 100,000 Unit/Ml 5 Ml Ud Cup) 5 ml PO QID [facility] Last Admin: 03/22/21 11:20 Dose: 5 ml Documented by: Polyethylene Glycol (Polyethylene Glycol 3350 Powder 17 Gm Packet) 17 gm PO DAILY [facility] Last Admin: 03/22/21 07:51 Dose: Not Given Documented by: - Exam General: Alert, Oriented, Cooperative HEENT: Mucous Membr. Moist/[place] Neck: Supple Lungs: Decreased Breath Sounds Cardiovascular: Regular Rate, Regular Rhythm GI/Abdominal Exam: Normal Bowel Sounds, Soft, Non-Tender Extremities: Normal Inspection, No Pedal Edema Skin: Warm, Dry - Patient Data Lab Results Last 24 hrs: Laboratory Results - last 24 hr 03/23/21 03/23/21 Range/Units 07:22 14:00 Sodium 144 (136-145) mEq/L Potassium 3.7 (3.5-5.0) mEq/L Chloride 109 H (98-106) mEq/L Carbon Dioxide 26 (21-32) mmol/L BUN 16 (7-18) mg/dL Creatinine 0.8 (0.6-1.0) mg/dL Est Cr Clr Drug Dosing 48.43 mL/min Estimated GFR (MDRD) > 60 (>=60) mL/min Glucose 107 H (75-99) mg/dL Calcium 8.8 (8.4-10.1) mg/dL Urine Color Yellow (YELLOW) Urine Appearance Slightly cloudy (CLEAR) Urine pH 5.5 (4.5-8.0) Ur Specific [place] 1.025 H (1.003-1.020) Urine Protein Negative (NEGATIVE) mg/dL Urine Glucose (UA) Negative (NEGATIVE) mg/dL Urine Ketones Negative (NEGATIVE) mg/dL Urine Occult Blood Trace-intact H (NEGATIVE) Urine Nitrite Negative (NEGATIVE) Urine Bilirubin Negative (NEGATIVE) Urine Urobilinogen 0.2 (0.2-1.0) EU/dL Ur Leukocyte Esterase Small H (NEGATIVE) Urine RBC 5-10 H (0-5) /HPF Urine WBC 50-75 H (0-5) /HPF Ur Squamous Epith Cells Moderate H (NOT SEEN) /HPF Urine Bacteria Few H (NOT SEEN) /HPF Result Diagrams: 03/21/21 10:00 03/23/21 07:22 Sepsis Event Note - Evaluation Sepsis Screening Result: No Definite Risk - Focused Exam Vital Signs: Vital Signs Temp Pulse Resp BP BP Pulse Ox 03/23/21 12:00 96.9 F 75 16 133/76 98 03/23/21 07:52 144/72 H 03/23/21 07:36 98.1 F 78 14 144/71 H 98 03/23/21 04:00 99.1 F 80 15 119/65 99 - Problem List & Annotations (1) Near syncope SNOMED Code(s): 240450205 Code(s): R55 - SYNCOPE AND COLLAPSE Status: Acute Priority: High Current Visit: Yes (2) Failure to thrive in adult SNOMED Code(s): 632533020 Code(s): R62.7 - ADULT FAILURE TO THRIVE Status: Acute Priority: High Current Visit: Yes (3) General weakness SNOMED Code(s): 88590334 Code(s): R53.1 - WEAKNESS Status: Acute Priority: High Current Visit: Yes (4) Hypokalemia SNOMED Code(s): 70977953 Code(s): E87.6 - HYPOKALEMIA Status: Acute Priority: High Current Visit: Yes (5) UTI, Urinary tract infectious disease SNOMED Code(s): 63755602 Code(s): N39.0 - URINARY TRACT INFECTION, SITE NOT SPECIFIED Status: Acute Priority: High Current Visit: Yes - Problem List Review Problem List Initiated/Reviewed/Updated: Yes - My Orders Last 24 Hours: My Active Orders 03/23/21 14:23 Head wo Cont [CT] Routine 03/23/21 15:15 cefTRIAXone [Rocephin] 1 gm IVPUSH Q24H - Assessment Assessment:: Hypokalemia Liver/Colon cancer with mets Weakness Near Syncope - Plan Plan:: Initially had planned to send patient home but due to near syncopal episode, will keep at least one more day. UA done, does have UTI. Will start IV Rocephin. relates "this happens periodically" at home as well. Quite confused before and during the event. CT scan of head to be done. Labs are basically unremarkable today, potassium 3.7. Will repeat labs in am. Culture done of urine. Continue Rocephin.
[2021-03-23] MEDS: Melatonin 3 MG Tab PO SCH (19:38)
[2021-03-24 07:59] LABS: CHLORIDE,CL 109 mEq/L (98-106); SODIUM,NA 143 mEq/L (136-145)
[2021-03-24] MEDS: Venlafaxine 75 MG Cap.ER PO SCH (07:59)
[2021-03-24] MEDS: Potassium Chloride 10 MEQ Tab.ER PO SCH (07:59)
[2021-03-24] MEDS: Aspirin 81 MG Tab.Chew PO SCH (08:00)
[2021-03-24] MEDS: CREON 24000 UNIT PO SCH (08:00)
[2021-03-24] MEDS: Oxybutynin 5 MG Tab.ER PO SCH (08:00)
[2021-03-24] MEDS: Gabapentin 100 MG Cap PO SCH (08:01)
[2021-03-24] MEDS: Enoxaparin 40 MG/0.4 ML Syringe SUBCUT SCH (08:01)
[2021-03-24] MEDS: Pantoprazole 40 MG Vial IVPUSH SCH (08:01)
[2021-03-24] MEDS: MEGESTROL 40 MG/ML PO SCH (08:01)
[2021-03-24] MEDS: Lisinopril 10 MG Tab PO SCH (08:01)
[2021-03-24 08:13] VITALS: BP 128/77; PULSE 82
--- NOTE | 2021-03-24 10:38 | PCM.DCSUM1 ---
Discharge Summary - Hospital Course Free Text/Narrative:: Ping is a 70 year old female admitted for weakness, lightheadedness and nausea. Has metastatic colon cancer. Recently had radiation therapy and has felt weak since that time. Appetite has been poor. Was seen a week prior in ER and had IV fluids. Was found to be hypokalemic. Admitted and started on IV fluids with potassium. Diagnosis: Stroke: No - Discharge Data Discharge Date: 03/24/21 Discharge Disposition: Home, Self-Care 01 Condition: Fair - Referral to Home Health Primary Care Physician: Glory Rodrigues PA-C - Discharge Diagnosis/Problem(s) (1) Near syncope SNOMED Code(s): 145636405 ICD Code: R55 - SYNCOPE AND COLLAPSE Status: Acute Priority: High (2) Failure to thrive in adult SNOMED Code(s): 594288192 ICD Code: R62.7 - ADULT FAILURE TO THRIVE Status: Acute Priority: High (3) General weakness SNOMED Code(s): 29784349 ICD Code: R53.1 - WEAKNESS Status: Acute Priority: High (4) Hypokalemia SNOMED Code(s): 27982948 ICD Code: E87.6 - HYPOKALEMIA Status: Acute Priority: High (5) UTI, Urinary tract infectious disease SNOMED Code(s): 31044065 ICD Code: N39.0 - URINARY TRACT INFECTION, SITE NOT SPECIFIED Status: Acute Priority: High - Patient Summary/Data Complications: none Hospital Course: Patient is feeling stronger, better this am. Was given IV fluids for the first 2 days of admission, is eating better now. Did have episode yesterday of near syncope. states that happens intermittently at times at home. Was up to bathroom and felt immediate weakness in her legs and had to be assisted to the floor. NO injuries susteained. Was confused after the occurrence. CT scan of the head was done, was negative. UA taken and notes WBC, bacteria. Started on IV Rocephin. Culture obtained. Will discharge home on Ceftin. Potassium increased. Will follow up with Glory in 10 days, repeat labs at that time. - Patient Instructions Diet: Usual Diet as Tolerated Activity: As Tolerated - Discharge Plan *PRESCRIPTION DRUG MONITORING PROGRAM REVIEWED*: Not Applicable *COPY OF PRESCRIPTION DRUG MONITORING REPORT IN PATIENT JOSE: Not Applicable Prescriptions/Med Rec: Cefuroxime [Ceftin] 250 mg PO BID #14 tab Home Medications: Home Meds Cholecalciferol (Vitamin D3) [Vitamin D3] 5,000 unit PO DAILY 06/13/16 [History] Omeprazole Magnesium [Prilosec Otc] 20 mg PO DAILY PRN 11/28/17 [History] Acetaminophen [Tylenol Extra Strength] 1,000 mg PO QID PRN 08/08/20 [History] Amylase/Lipase/Protease [Walt DR 24,000 Unit] 1 - 2 cap PO TIDAC 08/08/20 [History] Calcium Carbonate/Vitamin D3 [Calcium 500-Vit D3 600 Caplet] 1 tab PO DAILY 08/08/20 [History] Cannabidiol (Cbd) Extract [CBD Oil] 8 drop SL DAILY 08/08/20 [History] Gabapentin [Neurontin] 100 mg PO TID 08/08/20 [History] Magnesium Oxide [Mag-Oxide] 800 mg PO DAILY 08/08/20 [History] Megestrol [Megace 40 MG/ML Susp] 10 ml PO DAILY 08/08/20 [History] Melatonin 3 mg PO BEDTIME 08/08/20 [History] Ondansetron [Zofran Odt] 8 mg PO Q6H PRN 08/08/20 [History] Policos/Inositol Niac/Garlic [Rhsnpvfjory-Tslmbo-Awnumr] 20 mg PO DAILY 08/08/20 [History] Promethazine [Phenergan] 25 mg TOP ASDIRECTED 08/08/20 [History] Venlafaxine HCl [Venlafaxine ER] 150 mg PO DAILY 08/08/20 [History] polyethylene glycoL 3350 [MiraLAX] 17 gm PO DAILY PRN 08/08/20 [History] lisinopriL [Prinivil] 10 mg PO DAILY #30 tablet 08/09/20 [Rx] Minocycline HCl 100 mg PO BIDAC 08/12/20 [History] oxyCODONE 5 mg PO Q6H PRN 08/12/20 [History] Oxybutynin [Oxybutynin ER] 10 mg PO DAILY 03/21/21 [History] Aspirin 81 mg PO DAILY 03/22/21 [History] Diphenoxylate HCl/Atropine [Lomotil] 1 tab PO QID PRN 03/22/21 [History] Magnesium Gluconate 500 mg PO DAILY 03/22/21 [History] Multivitamin 1 tab PO DAILY 03/22/21 [History] Potassium Chloride [Klor-Con M20] 20 meq PO BID 03/22/21 [History] dexAMETHasone [Dexamethasone] 2 mg PO BIDMEALS PRN 03/22/21 [History] Cefuroxime [Ceftin] 250 mg PO BID #14 tab 03/24/21 [Rx] Patient Handouts: Hypokalemia Forms: ED Department Discharge Referrals: Glory Rodrigues PA-C [Primary Care Provider] - (Follow up with Glory Rodrigues in 10 days) - Discharge Summary/Plan Comment DC Time >30 min.: No Total # of Minutes for Discharge Time: 20 - General Info Date of Service: 03/24/21 Admission Dx/Problem (Free Text: Hypokalemia History of liver/colon cancer with mets Weakness Functional Status: Reports: Pain Controlled, Tolerating Diet, Ambulating - Review of Systems General: Reports: Weakness, Fatigue, Malaise. Denies: Fever HEENT: Denies: Ear Pain, Sinus Congestion, Sore Throat, Rhinitis Pulmonary: Reports: Shortness of Breath, Cough Cardiovascular: Reports: Lightheadedness. Denies: Chest Pain, Edema Gastrointestinal: Reports: Decreased Appetite. Denies: Abdominal Pain, Nausea, Vomiting Genitourinary: Reports: No Symptoms Musculoskeletal: Reports: Back Pain Skin: Reports: No Symptoms Neurological: Reports: Weakness - Patient Data Vitals - Most Recent: Last Vital Signs Temp 98.1 F 03/24/21 08:00 Pulse 82 03/24/21 08:00 Resp 18 03/24/21 08:00 BP 142/61 H 03/24/21 08:01 Pulse Ox 98 03/24/21 08:00 Weight - Most Recent: 106 lb 6.4 oz I&O - Last 24 hours: Intake & Output 03/23/21 03/24/21 03/24/21 22:59 06:59 14:59 Intake Total 600 100 Balance 600 100 Lab Results - Last 24 hrs: Laboratory Results - last 24 hr 03/23/21 03/24/21 Range/Units 14:00 07:29 Sodium 143 (136-145) mEq/L Potassium 3.9 (3.5-5.0) mEq/L Chloride 109 H (98-106) mEq/L Carbon Dioxide 25 (21-32) mmol/L BUN 16 (7-18) mg/dL Creatinine 0.6 (0.6-1.0) mg/dL Est Cr Clr Drug Dosing 64.57 mL/min Estimated GFR (MDRD) > 60 (>=60) mL/min Glucose 91 (75-99) mg/dL Calcium 8.8 (8.4-10.1) mg/dL Urine Color Yellow (YELLOW) Urine Appearance Slightly cloudy (CLEAR) Urine pH 5.5 (4.5-8.0) Ur Specific [place] 1.025 H (1.003-1.020) Urine Protein Negative (NEGATIVE) mg/dL Urine Glucose (UA) Negative (NEGATIVE) mg/dL Urine Ketones Negative (NEGATIVE) mg/dL Urine Occult Blood Trace-intact H (NEGATIVE) Urine Nitrite Negative (NEGATIVE) Urine Bilirubin Negative (NEGATIVE) Urine Urobilinogen 0.2 (0.2-1.0) EU/dL Ur Leukocyte Esterase Small H (NEGATIVE) Urine RBC 5-10 H (0-5) /HPF Urine WBC 50-75 H (0-5) /HPF Ur Squamous Epith Cells Moderate H (NOT SEEN) /HPF Urine Bacteria Few H (NOT SEEN) /HPF GEMA Results - Last 24 hrs: Microbiology 03/23/21 14:44 Urine Culture - Preliminary Urine, Catheterized NO GROWTH AFTER 1 DAY Med Orders - Current: Current Medications Acetaminophen (Acetaminophen 325 Mg Tab) 650 mg PO Q4H PRN PRN Reason: Pain (Mild 1-3)/fever Last Admin: 03/22/21 20:16 Dose: 650 mg Documented by: Aspirin (Aspirin 81 Mg Tab.Chew) 81 mg PO DAILY [facility] Last Admin: 03/24/21 08:00 Dose: 81 mg Documented by: Ceftriaxone Sodium (Ceftriaxone 1 Gm Vial) 1 gm IVPUSH Q24H [facility] Last Admin: 03/23/21 15:10 Dose: 1 gm Documented by: Enoxaparin Sodium (Enoxaparin 40 Mg/0.4 Ml Syringe) 40 mg SUBCUT Q24H [facility] Last Admin: 03/24/21 08:01 Dose: 40 mg Documented by: Gabapentin (Gabapentin 100 Mg Cap) 100 mg PO TID [facility] Last Admin: 03/24/21 08:01 Dose: 100 mg Documented by: Heparin Sodium (Porcine) (Heparin Sodium 100 Units/Ml 5 Ml Syringe) 500 units FLUSH ASDIRECTED PRN PRN Reason: Other Last Admin: 03/24/21 08:03 Dose: 500 units Documented by: Sodium Chloride (Normal Saline) 1,000 mls @ 100 mls/hr IV ASDIRECTED [facility] Last Admin: 03/22/21 00:13 Dose: 100 mls/hr Documented by: Sodium Chloride (Normal Saline) 1,000 mls @ 100 mls/hr IV ASDIRECTED [facility] Lisinopril (Lisinopril 10 Mg Tab) 10 mg PO DAILY [facility] Last Admin: 03/24/21 08:01 Dose: 10 mg Documented by: Magnesium Oxide (Magnesium Oxide 250 Mg Tab) 750 mg PO DAILY@1200 [facility] Last Admin: 03/23/21 12:00 Dose: 750 mg Documented by: Melatonin (Melatonin 3 Mg Tab) 3 mg PO BEDTIME [facility] Last Admin: 03/23/21 19:38 Dose: 3 mg Documented by: Minocycline HCl (Minocycline 100 Mg Cap) 100 mg PO BIDAC [facility] Last Admin: 03/24/21 08:00 Dose: 100 mg Documented by: Creon (Pancrelipase) 24,000 Unit Capsule Ptom 0 cap PO TIDMEALS [facility] Last Admin: 03/24/21 08:00 Dose: 1 cap Documented by: Megesterol Acetate 40mg/Ml Susp 10 Ml * *Ptom 0 ml PO DAILY [facility] Last Admin: 03/24/21 08:01 Dose: 10 ml Documented by: Ondansetron HCl (Ondansetron 4 Mg Tab.Dis) 8 mg PO Q6H PRN PRN Reason: Nausea Oxybutynin Chloride (Oxybutynin 5 Mg Tab.Er) 10 mg PO DAILY [facility] Last Admin: 03/24/21 08:00 Dose: 10 mg Documented by: Oxycodone HCl (Oxycodone 5 Mg Tab) 5 mg PO Q6H PRN PRN Reason: Pain Last Admin: 03/22/21 08:25 Dose: 5 mg Documented by: Pantoprazole Sodium (Pantoprazole 40 Mg Vial) 40 mg IVPUSH Q12H [facility] Last Admin: 03/24/21 08:01 Dose: 40 mg Documented by: Polyethylene Glycol (Polyethylene Glycol 3350 Powder 17 Gm Packet) 17 gm PO DAILY PRN PRN Reason: constipation Potassium Chloride (Potassium Chloride 10 Meq Tab.Er) 20 meq PO DAILY [facility] Last Admin: 03/24/21 07:59 Dose: 20 meq Documented by: Sodium Chloride (Sodium Chloride 0.9% 10 Ml Syringe) 10 ml FLUSH ASDIRECTED PRN PRN Reason: Keep Vein Open Venlafaxine HCl (Venlafaxine 75 Mg Cap.Er) 150 mg PO DAILY [facility] Last Admin: 03/24/21 07:59 Dose: 150 mg Documented by: Discontinued Medications Aspirin (Aspirin 81 Mg Tab.Chew) 81 mg PO DAILY [facility] Last Admin: 03/22/21 07:51 Dose: 81 mg Documented by: Potassium Chloride 20 meq/ (Premix) 100 mls @ 50 mls/hr IV ONETIME ONE Stop: 03/21/21 12:31 Last Admin: 03/21/21 10:39 Dose: 50 mls/hr Documented by: Potassium Chloride 20 meq/ (Premix) 100 mls @ 50 mls/hr IV ONETIME ONE Stop: 03/21/21 12:32 Last Admin: 03/21/21 14:04 Dose: 50 mls/hr Documented by: Potassium Chloride 40 meq/ (Premix) 100 mls @ 25 mls/hr IV ONETIME ONE Stop: 03/22/21 15:14 Last Admin: 03/22/21 11:21 Dose: 25 mls/hr Documented by: Nystatin (Nystatin Susp 100,000 Unit/Ml 5 Ml Ud Cup) 5 ml PO QID [facility] Last Admin: 03/22/21 11:20 Dose: 5 ml Documented by: Polyethylene Glycol (Polyethylene Glycol 3350 Powder 17 Gm Packet) 17 gm PO DAILY [facility] Last Admin: 03/22/21 07:51 Dose: Not Given Documented by: - Exam General: Reports: Alert, Oriented HEENT: Reports: Mucous Membr. Moist/[place] Neck: Reports: Supple Lungs: Reports: Clear to Auscultation, Normal Respiratory Effort Cardiovascular: Reports: Regular Rate, Regular Rhythm GI/Abdominal Exam: Normal Bowel Sounds, Soft, Non-Tender Extremities: Normal Inspection, No Pedal Edema Skin: Reports: Warm, Dry Neurological: Reports: No New Focal Deficit
[2021-03-24] MEDS: cefTRIAXone 1 GM Vial IVPUSH SCH (11:40)
== END 2021-03-24 11:55 | disposition home or self-care (01) | DRG 641 ==
LOC: CC.ED 09:56 → CC.MS 11:06 → UNDOADMIN 11:06 → CC.MS 12:21
PROVIDERS: ADMIT Physician Assistant Medical; ATTEND Family Medicine
DX: E87.6 Hypokalemia (principal); R53.1 Weakness; N39.0 Urinary tract infection, site not specified; C18.9 Malignant neoplasm of colon, unspecified; F32.9 Major depressive disorder, single episode, unspecified; Z85.038 Personal history of other malignant neoplasm of large intestine; C78.00 Secondary malignant neoplasm of unspecified lung; C78.7 Secondary malignant neoplasm of liver and intrahepatic bile duct; R62.7 Adult failure to thrive; F17.200 Nicotine dependence, unspecified, uncomplicated; H54.7 Unspecified visual loss; F17.210 Nicotine dependence, cigarettes, uncomplicated; Z79.899 Other long term (current) drug therapy; Z79.82 Long term (current) use of aspirin; Z88.2 Allergy status to sulfonamides; Z90.49 Acquired absence of other specified parts of digestive tract
CPT/HCPCS: 36415; 70450; 71045; 80048; 80053; 81001; 83605; 83735; 84484; 85025; 86140; 87086; 93005; 96365; 96366; 99285-25; A9270-GY; C9113; J0696; J1642; J1650; J3480; J7030

== ENCOUNTER 2022-01-07 11:46 | Observation (INO) | payer MEDICARE, BC ==
[2022-01-07] MEDS ORDERED: Ondansetron 4 MG/2 ML SDV IVPUSH STA (11:59)
[2022-01-07] MEDS ORDERED: Sodium Chloride 0.9% 1,000 ML IV ONE ×2 (11:59→18:00)
[2022-01-07] MEDS ORDERED: Potassium Chloride Riders 40 MEQ in Premix Bag 1 BAG IV ONE (12:52)
[2022-01-07] MEDS ORDERED: Ondansetron 4 MG/2 ML SDV IV PRN (13:26)
[2022-01-07] MEDS ORDERED: Ondansetron 4 MG Tab.DIS PO PRN (13:26)
[2022-01-07] MEDS ORDERED: Acetaminophen 325 MG Tab PO PRN (13:26)
[2022-01-07] MEDS ORDERED: Enoxaparin 30 MG/0.3 ML Syringe SUBCUT SCH (13:30)
[2022-01-07] MEDS: Sodium Chloride 0.9% 1,000 ML IV SCH ×2 (14:07→21:29)
[2022-01-07] MEDS ORDERED: Acetaminophen 500 MG Tab PO PRN (14:43)
[2022-01-07] MEDS ORDERED: Gabapentin 100 MG Cap **PTOM PO SCH (15:30)
[2022-01-07] MEDS ORDERED: Gabapentin 100 MG Cap **PTOM PO PRN (16:45)
[2022-01-07] MEDS: PROTEASE PO SCH (17:01)
[2022-01-07] MEDS: LIPASE PO SCH (17:01)
[2022-01-07] MEDS: AMYLASE PO SCH (17:01)
[2022-01-07] MEDS: Mirtazapine 15 MG Tab **PTOM PO SCH (19:43)
[2022-01-07] MEDS: Heparin Sodium 5,000 Units/ML Vial SUBCUT SCH (19:43)
[2022-01-07] MEDS: OXYBUTYNIN 10 MG PO SCH (19:44)
[2022-01-08] MEDS: Sodium Chloride 0.9% 1,000 ML IV SCH ×2 (05:34→15:12)
[2022-01-08] MEDS ORDERED: CANNABIDIOL SL SCH (08:00)
[2022-01-08] MEDS: Aspirin 81 MG Tab.Chew PO SCH (08:02)
[2022-01-08] MEDS: Heparin Sodium 5,000 Units/ML Vial SUBCUT SCH ×2 (08:02→20:01)
[2022-01-08] MEDS: Cholecalciferol (Vitamin D3) 25 MCG Tab PO SCH (08:02)
[2022-01-08] MEDS: Loratadine 10 MG Tab PO SCH (08:03)
[2022-01-08] MEDS: AMYLASE PO SCH ×3 (08:04→17:12)
[2022-01-08] MEDS: PROTEASE PO SCH ×3 (08:04→17:12)
[2022-01-08] MEDS: LIPASE PO SCH ×3 (08:04→17:12)
[2022-01-08] MEDS: VENLAFAXINE 150 MG PO SCH (08:05)
[2022-01-08] MEDS: POLICOSANOL PO SCH (08:05)
[2022-01-08] MEDS: MEGESTROL PO SCH (08:14)
[2022-01-08] MEDS: OXYBUTYNIN 10 MG PO SCH (20:17)
[2022-01-08] MEDS: Mirtazapine 15 MG Tab **PTOM PO SCH (20:17)
[2022-01-09] MEDS: Sodium Chloride 0.9% 1,000 ML IV SCH (04:38)
[2022-01-09] MEDS: PROTEASE PO SCH ×2 (07:15→12:18)
[2022-01-09] MEDS: AMYLASE PO SCH ×2 (07:15→12:18)
[2022-01-09] MEDS: LIPASE PO SCH ×2 (07:15→12:18)
[2022-01-09] MEDS: VENLAFAXINE 150 MG PO SCH (07:47)
[2022-01-09] MEDS: POLICOSANOL PO SCH (07:48)
[2022-01-09] MEDS: Aspirin 81 MG Tab.Chew PO SCH (07:49)
[2022-01-09] MEDS: Cholecalciferol (Vitamin D3) 25 MCG Tab PO SCH (07:50)
[2022-01-09] MEDS: Loratadine 10 MG Tab PO SCH (07:50)
[2022-01-09] MEDS: Heparin Sodium 5,000 Units/ML Vial SUBCUT SCH (07:51)
[2022-01-09] MEDS: MEGESTROL PO SCH (07:52)
[2022-01-09 12:35] VITALS: BP 139/80; PULSE 89
== END 2022-01-09 14:15 | disposition home health service (06) ==
LOC: CC.ED 11:46 → CC.MS 13:15 → UNDOADMOB 13:19 → CC.MS 13:19
PROVIDERS: ADMIT Nurse Practitioner Family; ATTEND Nurse Practitioner Family
DX: N17.9 Acute kidney failure, unspecified (principal); E86.0 Dehydration; R62.7 Adult failure to thrive; R53.1 Weakness; F32.A Depression, unspecified; C18.9 Malignant neoplasm of colon, unspecified; C78.00 Secondary malignant neoplasm of unspecified lung; E87.6 Hypokalemia; Z90.49 Acquired absence of other specified parts of digestive tract; Z79.899 Other long term (current) drug therapy; Z79.83 Long term (current) use of bisphosphonates; Z79.82 Long term (current) use of aspirin; Z88.2 Allergy status to sulfonamides; Z98.890 Other specified postprocedural states; Z20.822 Contact with and (suspected) exposure to COVID-19
CPT/HCPCS: 36415; 80053; 82248; 83735; 85025; 86140; 97161-GP; A9270-GY; J1644; J2405; J3480; J7030; U0002